=== PATIENT | male | born 1975 | race Two or more races ===

== ENCOUNTER 2022-11-12 14:02 | Inpatient (IN) | payer MEDICAID, OTHER ==
[~2022-11-12] VITALS: Ht 188 cm; Wt 108.0 kg
[~2022-11-12 14:02] MED LIST: ALLO100T PO; AMLO1TAB23 PO; BUSP10TA90 PO; CHL25C PO; FOLI-119 PO; MET50T PO; PANT40T PO; THIA100T13 PO
[2022-11-12] MEDS ORDERED: LORazepam 2MG/ML-1ML VIAL IV ONE ×2 (15:00→17:30)
[2022-11-12] MEDS ORDERED: SODIUM CHLORIDE 0.9% 1,000 ML IV ONE (15:00)
[2022-11-12 16:03] LABS: Basophils # (auto) 0 10 ^3/uL (0-0.2); Basophils % (auto) 1.1 % (0.0-2.0); Eosinophils # (auto) 0 10 ^3/uL (0-0.8); Hematocrit 36.8 % (41.0-53.0); Hemoglobin 12.4 g/dL (13.5-17.5); Lymphocytes # (auto) 0.7 10 ^3/uL (0.4-5.4); Lymphocytes % (auto) 18.8 % (10.0-50.0); Mean Corpuscular Hemoglobin 30.1 pg (28.0-32.0); Mean Corpuscular Hgb Conc. 33.8 g/dL (32.0-36.0); Monocytes # (auto) 0.3 10 ^3/uL (0-1.3); Monocytes % (auto) 7.7 % (0.0-12.0); Neutrophils # (auto) 2.5 10 ^3/uL (1.6-8.6); Neutrophils % (auto) 72.4 % (37.0-80.0); Nucleated Red Blood Cells % 0.8 %; Red Blood Cells 4.13 10^6/uL (4.5-5.90); Red Cell Distribution Width 16.4 % (11.8-14.3); White Blood Cell 3.5 10^3/uL (4.4-10.8)
[2022-11-12 16:07] VITALS: PULSE 128; RESP 21; O2SAT 95
[2022-11-12 16:18] LABS: Alanine Aminotransferase 43 U/L (7-40); Albumin 4.3 g/dL (3.2-4.8); Alkaline Phosphatase 89 U/L (46-116); Anion Gap 22 (5-15); Aspartate Aminotransferase 103 U/L (13-40); BUN/Creatinine Ratio 7.4 (10.0-20.0); Blood Alcohol 6.2 mg/dL (<10); Blood Urea Nitrogen 6 mg/dL (9-23); Calcium 8.7 mg/dL (8.7-10.4); Carbon Dioxide 20 mmol/L (20-30); Chloride 97 mmol/L (98-107); Glucose 63 mg/dL (74-106); Lactic Acid w/Reflex 3.3 mmol/L (0.4-2.0); Potassium 3.2 mmol/L (3.5-5.1); Sodium 139 mmol/L (136-145)
[2022-11-12 16:19] LABS: Bilirubin, Total 1.8 mg/dL (0.2-1.0); Total Protein 8.1 g/dL (5.7-8.2)
[2022-11-12 16:34] LABS: Platelet Estimate Decreased
[2022-11-12 16:35] LABS: Anisocytosis Slight
[2022-11-12] MEDS ORDERED: DEXTROSE (50%) 50ML SYRG IV ONE (17:30)
[2022-11-12 19:01] LABS: Urine Bacteria NONE SEEN /hpf (None Seen); Urine Blood 1+ /uL (Negative); Urine Clarity Clear (Clear); Urine Color Yellow (Yellow); Urine Mucus FEW (None Seen); Urine Protein, UAD 4+ (Negative); Urine Specific Gravity 1.032 (1.001-1.035); Urine WBC 3 /hpf (0 - 3)
[2022-11-12 19:18] LABS: Amphetamine Screen, Urine Neg (NEGATIVE); Barbiturate Scree,Urine Neg (NEGATIVE); Benzodiazephine Screen, Urine Pos (NEGATIVE); Cocaine Screen, Urine Neg (NEGATIVE); Opiate Scree,Urine Neg (NEGATIVE)
[2022-11-12 19:19] LABS: Cannabinoid Screen, Urine Neg (NEGATIVE); Phencyclidine Screen, Urine Neg (NEGATIVE)
[2022-11-12 19:26] VITALS: PULSE 103; RESP 17; O2SAT 96
[2022-11-12] MEDS ORDERED: MORPHINE SULFATE INJ 2 MG/ml SYRG IV PRN (20:15)
[2022-11-12] MEDS ORDERED: ONDANSETRON HCL 4 MG/2 ML VIAL IV PRN (20:15)
[2022-11-12] MEDS ORDERED: NITROGLYCERIN 0.4 MG SL TAB SL PRN (20:15)
[2022-11-12] MEDS ORDERED: POTASSIUM CHL 20 Meq TABLET PO ONE (20:15)
[2022-11-12] MEDS: chlordiazePOXIDE HCL 25 MG CAP PO PRN (21:07)
[2022-11-12] MEDS: METOPROLOL TARTRATE 50 MG TAB PO SCH (22:39)
[2022-11-12] MEDS ORDERED: IBUPROFEN 600 MG TAB PO ONE (22:45)
[2022-11-12] MEDS: TEMAZEPAM 15 MG CAP PO PRN (22:54)
[2022-11-13] VITALS (7 sets, daily range): BP systolic 150–165; BP diastolic 98–103; PULSE 70–118; RESP 18–20; TEMP 97.9–98.6; O2SAT 96–98
[2022-11-13] MEDS: chlordiazePOXIDE HCL 25 MG CAP PO PRN (02:44)
[2022-11-13 05:01] LABS: Basophils # (auto) 0 10 ^3/uL (0-0.2); Eosinophils # (auto) 0 10 ^3/uL (0-0.8); Eosinophils % (auto) 0.4 % (0.0-7.0); Hematocrit 36.4 % (41.0-53.0); Hemoglobin 12.3 g/dL (13.5-17.5); Lymphocytes # (auto) 1.1 10 ^3/uL (0.4-5.4); Lymphocytes % (auto) 39.5 % (10.0-50.0); Mean Corpuscular Hemoglobin 29.9 pg (28.0-32.0); Mean Corpuscular Hgb Conc. 33.7 g/dL (32.0-36.0); Mean Corpuscular Volume 88.9 fL (80.0-100.0); Monocytes # (auto) 0.3 10 ^3/uL (0-1.3); Monocytes % (auto) 11.3 % (0.0-12.0); Neutrophils # (auto) 1.3 10 ^3/uL (1.6-8.6); Neutrophils % (auto) 47.8 % (37.0-80.0); Nucleated Red Blood Cells % 0.9 %; Red Cell Distribution Width 16.2 % (11.8-14.3); White Blood Cell 2.8 10^3/uL (4.4-10.8)
[2022-11-13 05:13] LABS: Chloride 98 mmol/L (98-107); Sodium 136 mmol/L (136-145)
[2022-11-13 05:14] LABS: Anion Gap 11 (5-15); Carbon Dioxide 27 mmol/L (20-30)
[2022-11-13 05:15] LABS: Calcium 8.7 mg/dL (8.7-10.4)
[2022-11-13] MEDS ORDERED: ACETAMINOPHEN 325 MG TAB PO ONE (05:15)
[2022-11-13 05:19] LABS: Glucose 94 mg/dL (74-106)
[2022-11-13 05:20] LABS: BUN/Creatinine Ratio 5.2 (10.0-20.0); Blood Urea Nitrogen < 5 mg/dL (9-23)
[2022-11-13] MEDS ORDERED: POTASSIUM CHL 20 Meq TABLET PO ONE ×2 (08:45→10:30)
[2022-11-13] MEDS: MAGNESIUM SULFATE 1GM/100ML 100 ML IV SCH ×2 (09:40→12:41)
[2022-11-13] MEDS: amLODIPine BESYLATE 5 MG TAB PO SCH (09:41)
[2022-11-13] MEDS: ALLOPURINOL 100 MG TAB PO SCH (09:41)
[2022-11-13] MEDS: METOPROLOL TARTRATE 50 MG TAB PO SCH ×2 (09:42→21:40)
[2022-11-13] MEDS: SERTRALINE HCL 50 MG TAB PO SCH (09:42)
[2022-11-13] MEDS ORDERED: FOLIC ACID 1 MG TAB PO SCH (10:00)
[2022-11-13 10:14] LABS: Hepatitis B Surface Antigen Negative (Negative)
[2022-11-13 10:35] LABS: Hepatitis C Antibody Negative (Negative)
[2022-11-13] MEDS: FOLIC ACID 1 MG, MULTIPLE VITAMIN 10 ML, MAGNESIUM SULF SDV 50% 8 MEQ, THIAMINE INJ 100... INJ SCH ×5 (13:35)
[2022-11-14] VITALS (12 sets, daily range): BP systolic 140–178; BP diastolic 91–113; PULSE 88–125; RESP 17–20; TEMP 97.6–98.7; O2SAT 95–99
[2022-11-14] MEDS: hydrALAZINE HCL 20 MG/ML VL IV PRN ×2 (04:37→16:23)
[2022-11-14] MEDS: chlordiazePOXIDE HCL 25 MG CAP PO PRN ×2 (04:38→16:46)
[2022-11-14 06:45] LABS: Basophils # (auto) 0 10 ^3/uL (0-0.2); Basophils % (auto) 0.6 % (0.0-2.0); Eosinophils # (auto) 0.1 10 ^3/uL (0-0.8); Hemoglobin 12.8 g/dL (13.5-17.5); Neutrophils # (auto) 1.6 10 ^3/uL (1.6-8.6); White Blood Cell 2.9 10^3/uL (4.4-10.8)
[2022-11-14 06:48] LABS: Eosinophils % (auto) 2.4 % (0.0-7.0); Hematocrit 37.4 % (41.0-53.0); Lymphocytes % (auto) 33.4 % (10.0-50.0); Mean Corpuscular Hemoglobin 29.8 pg (28.0-32.0); Mean Corpuscular Hgb Conc. 34.2 g/dL (32.0-36.0); Mean Corpuscular Volume 87.3 fL (80.0-100.0); Monocytes # (auto) 0.3 10 ^3/uL (0-1.3); Monocytes % (auto) 9.4 % (0.0-12.0); Neutrophils % (auto) 54.2 % (37.0-80.0); Nucleated Red Blood Cells % 0.4 %; Red Blood Cells 4.29 10^6/uL (4.5-5.90); Red Cell Distribution Width 16.1 % (11.8-14.3)
[2022-11-14 06:57] LABS: Anion Gap 10 (5-15); Carbon Dioxide 26 mmol/L (20-30); Chloride 99 mmol/L (98-107); Sodium 135 mmol/L (136-145)
[2022-11-14 06:58] LABS: Calcium 9.2 mg/dL (8.7-10.4)
[2022-11-14 07:03] LABS: Glucose 99 mg/dL (74-106)
[2022-11-14 07:19] LABS: BUN/Creatinine Ratio 7.7 (10.0-20.0); Blood Urea Nitrogen < 5 mg/dL (9-23); Potassium 2.9 mmol/L (3.5-5.1)
[2022-11-14] MEDS ORDERED: POTASSIUM EFFERVESENT TAB 25 MEQ GT ONE (08:15)
[2022-11-14] MEDS ORDERED: LISI-275 PO (09:41)
[2022-11-14] MEDS: ALLOPURINOL 100 MG TAB PO SCH (10:04)
[2022-11-14] MEDS: SERTRALINE HCL 50 MG TAB PO SCH (10:04)
[2022-11-14] MEDS: POTASSIUM CHL 20 Meq TABLET PO ONE ×3 (10:04→11:51)
[2022-11-14] MEDS: METOPROLOL TARTRATE 50 MG TAB PO SCH ×2 (10:05→21:00)
[2022-11-14] MEDS: amLODIPine BESYLATE 5 MG TAB PO SCH (10:06)
[2022-11-14] MEDS: FOLIC ACID 1 MG, MULTIPLE VITAMIN 10 ML, MAGNESIUM SULF SDV 50% 8 MEQ, THIAMINE INJ 100... INJ SCH ×5 (11:58)
[2022-11-14] MEDS: TEMAZEPAM 15 MG CAP PO PRN (21:00)
[2022-11-15] VITALS (7 sets, daily range): BP systolic 120–153; BP diastolic 87–99; PULSE 94–127; RESP 18–20; TEMP 36.6; O2SAT 96–98
[2022-11-15] MEDS: chlordiazePOXIDE HCL 25 MG CAP PO PRN ×2 (00:17→15:49)
[2022-11-15] MEDS ORDERED: LORazepam 2MG/ML-1ML VIAL IV PRN (03:30)
[2022-11-15] MEDS: LORazepam 2MG/ML-1ML VIAL IV PRN ×2 (03:51→10:48)
[2022-11-15] MEDS ORDERED: dilTIAZem 25 MG/5 ML VIAL IV ONE (05:15)
[2022-11-15 08:15] LABS: Basophils # (auto) 0 10 ^3/uL (0-0.2); Eosinophils # (auto) 0 10 ^3/uL (0-0.8); Eosinophils % (auto) 1.3 % (0.0-7.0); Hematocrit 39.9 % (41.0-53.0); Hemoglobin 13.3 g/dL (13.5-17.5); Lymphocytes # (auto) 1.2 10 ^3/uL (0.4-5.4); Lymphocytes % (auto) 35.7 % (10.0-50.0); Mean Corpuscular Hemoglobin 29.7 pg (28.0-32.0); Mean Corpuscular Hgb Conc. 33.3 g/dL (32.0-36.0); Monocytes # (auto) 0.3 10 ^3/uL (0-1.3); Monocytes % (auto) 8.4 % (0.0-12.0); Neutrophils # (auto) 1.8 10 ^3/uL (1.6-8.6); Neutrophils % (auto) 53.6 % (37.0-80.0); Nucleated Red Blood Cells % 0.1 %; Red Blood Cells 4.48 10^6/uL (4.5-5.90); Red Cell Distribution Width 16.6 % (11.8-14.3); White Blood Cell 3.3 10^3/uL (4.4-10.8)
[2022-11-15 08:28] LABS: Anion Gap 12 (5-15); Carbon Dioxide 24 mmol/L (20-30); Chloride 98 mmol/L (98-107); Potassium 3.2 mmol/L (3.5-5.1); Sodium 134 mmol/L (136-145)
[2022-11-15 08:29] LABS: Calcium 9.8 mg/dL (8.5-10.1)
[2022-11-15 08:34] LABS: BUN/Creatinine Ratio 9.1 (10.0-20.0); Blood Urea Nitrogen 6 mg/dL (9-23); Glucose 105 mg/dL (74-106)
[2022-11-15] MEDS: ALLOPURINOL 100 MG TAB PO SCH (10:45)
[2022-11-15] MEDS: amLODIPine BESYLATE 5 MG TAB PO SCH (10:45)
[2022-11-15] MEDS: SERTRALINE HCL 50 MG TAB PO SCH (10:46)
[2022-11-15] MEDS: METOPROLOL TARTRATE 50 MG TAB PO SCH ×2 (10:48→22:53)
[2022-11-15] MEDS: FOLIC ACID 1 MG, MULTIPLE VITAMIN 10 ML, MAGNESIUM SULF SDV 50% 8 MEQ, THIAMINE INJ 100... INJ SCH ×5 (12:48)
[2022-11-15] MEDS: MAGNESIUM SULFATE 1GM/100ML 100 ML IV SCH ×2 (16:35→22:44)
[2022-11-15] MEDS: POTASSIUM CHL 20MEQ/100ML 100 ML IV SCH ×2 (16:36→19:52)
[2022-11-15 16:45] LABS: Triglycerides 106 mg/dL (< 150)
[2022-11-15] MEDS ORDERED: AMOXICILLIN/CLAVUL 875 MG TAB PO ONE (16:45)
[2022-11-15] MEDS ORDERED: MAGNESIUM OXIDE 400 MG TAB PO ONE (16:45)
[2022-11-15 16:46] LABS: LDL Cholesterol 126 mg/dL (< 100)
[2022-11-15 16:47] LABS: Cholesterol 229 mg/dL (< 200); HDL Cholesterol 67 mg/dL (40-59)
[2022-11-15] MEDS: chlordiazePOXIDE HCL 25 MG CAP PO SCH ×2 (18:00→22:53)
[2022-11-15] MEDS ORDERED: MAGNESIUM OXIDE 400 MG TAB PO SCH (22:00)
[2022-11-16] MEDS: chlordiazePOXIDE HCL 25 MG CAP PO SCH ×2 (06:00→12:00)
[2022-11-16] MEDS: MAGNESIUM SULFATE 1GM/100ML 100 ML IV SCH (06:57)
[2022-11-16] MEDS ORDERED: AMOXICILLIN/CLAVUL 875 MG TAB PO SCH (07:00)
[2022-11-16 08:00] VITALS: BP 122/84; PULSE 93; RESP 20; TEMP 98
[2022-11-16] MEDS ORDERED: POTASSIUM CHL 20 Meq TABLET PO ONE (08:15)
[2022-11-16] MEDS: ALLOPURINOL 100 MG TAB PO SCH (10:14)
[2022-11-16] MEDS: METOPROLOL TARTRATE 50 MG TAB PO SCH (10:15)
[2022-11-16] MEDS: SERTRALINE HCL 50 MG TAB PO SCH (10:15)
[2022-11-16] MEDS: amLODIPine BESYLATE 5 MG TAB PO SCH (10:16)
[2022-11-16 11:50] VITALS: BP 122/84; PULSE 93; RESP 18; O2SAT 97
[2022-11-16] MEDS: FOLIC ACID 1 MG, MULTIPLE VITAMIN 10 ML, MAGNESIUM SULF SDV 50% 8 MEQ, THIAMINE INJ 100... INJ SCH ×5 (12:00)
[2022-11-16 14:38] VITALS: BP 122/74; PULSE 93; RESP 18; TEMP 98; O2SAT 97
== END 2022-11-16 16:28 | disposition home or self-care (01) | DRG 204 ==
LOC: EDBD 14:02 → ER 14:02 → TELE 20:09 → TELE-WESTW 11-13 08:52
PROVIDERS: ADMIT Internal Medicine Pulmonary Disease; ATTEND Student in an Organized Health Care Education/Training Program
DX: I95.1 Orthostatic hypotension (principal); F10.231 Alcohol dependence with withdrawal delirium; D69.6 Thrombocytopenia, unspecified; E87.20 Acidosis, unspecified; S09.90XA Unspecified injury of head, initial encounter; S81.011A Laceration without foreign body, right knee, initial encounter; E86.0 Dehydration; F10.239 Alcohol dependence with withdrawal, unspecified; I10 Essential (primary) hypertension; D72.819 Decreased white blood cell count, unspecified; E87.6 Hypokalemia; E83.42 Hypomagnesemia; E66.9 Obesity, unspecified; G62.9 Polyneuropathy, unspecified; R00.0 Tachycardia, unspecified; R29.6 Repeated falls; I16.0 Hypertensive urgency; M1A.9XX0 Chronic gout, unspecified, without tophus (tophi); F10.229 Alcohol dependence with intoxication, unspecified; Y90.9 Presence of alcohol in blood, level not specified; W18.39XA Other fall on same level, initial encounter; Y93.89 Activity, other specified; Z82.49 Family history of ischemic heart disease and other diseases of the circulatory system; Z83.3 Family history of diabetes mellitus; Y92.89 Other specified places as the place of occurrence of the external cause; Y99.8 Other external cause status; Z68.30 Body mass index [BMI] 30.0-30.9, adult; D69.59 Other secondary thrombocytopenia; G89.11 Acute pain due to trauma; W19.XXXA Unspecified fall, initial encounter
CPT/HCPCS: 36415; 70450; 71045; 72125; 80048; 80053; 80061; 80307; 80320; 81001; 82533; 82962; 83036; 83605; 83735; 83880; 84443; 84484; 85025; 86803; 87340; 93306; 96361; 96374; 96375; 96376; 97163; G0378; J3480

== ENCOUNTER 2022-12-16 19:42 | Inpatient (IN) | payer MEDICAID ==
[~2022-12-16] VITALS: Ht 182.9 cm; Wt 90.9 kg
[~2022-12-16 19:42] MED LIST changes: -BUSP10TA90 PO; +GABA-1250 PO; +LISI-275 PO
[2022-12-16] MEDS ORDERED: ONDANSETRON HCL 4 MG/2 ML VIAL IV ONE (21:00)
[2022-12-16] MEDS ORDERED: THIAMINE 100mg/ml INJ (200mg/2ml VIAL) IV ONE (21:00)
[2022-12-16] MEDS ORDERED: MVI in SODIUM CHLORIDE 0.9% 1,010 ML IV ONE (21:00)
[2022-12-16] MEDS ORDERED: LORazepam 2MG/ML-1ML VIAL IV ONE (21:00)
[2022-12-16] MEDS ORDERED: PANTOPRAZOLE 40 MG/10 ML VIAL INJ IV ONE (21:00)
[2022-12-16] MEDS: MAGNESIUM SULFATE 1GM/100ML 100 ML IV SCH ×2 (21:25→22:38)
[2022-12-16 21:38] LABS: Basophils # (auto) 0.1 10 ^3/uL (0-0.2); Eosinophils # (auto) 0 10 ^3/uL (0-0.8); Hematocrit 40.9 % (41.0-53.0); Hemoglobin 13.4 g/dL (13.5-17.5); Lymphocytes # (auto) 1.2 10 ^3/uL (0.4-5.4); Lymphocytes % (auto) 33.9 % (10.0-50.0); Mean Corpuscular Hemoglobin 29.8 pg (28.0-32.0); Mean Corpuscular Hgb Conc. 32.8 g/dL (32.0-36.0); Mean Corpuscular Volume 90.9 fL (80.0-100.0); Monocytes # (auto) 0.3 10 ^3/uL (0-1.3); Monocytes % (auto) 8.4 % (0.0-12.0); Neutrophils # (auto) 1.9 10 ^3/uL (1.6-8.6); Neutrophils % (auto) 54.7 % (37.0-80.0); Nucleated Red Blood Cells % 0.2 %; Red Cell Distribution Width 17.1 % (11.8-14.3); White Blood Cell 3.5 10^3/uL (4.4-10.8)
[2022-12-16 21:47] LABS: Alanine Aminotransferase 76 U/L (7-40); Albumin 4.9 g/dL (3.2-4.8); Alkaline Phosphatase 102 U/L (46-116); Anion Gap 21 (5-15); Aspartate Aminotransferase 156 U/L (13-40); BUN/Creatinine Ratio 6.8 (10.0-20.0); Blood Alcohol 46.6 mg/dL (<10); Blood Urea Nitrogen 5 mg/dL (9-23); Calcium 9.2 mg/dL (8.5-10.1); Carbon Dioxide 18 mmol/L (20-30); Chloride 103 mmol/L (98-107); Glucose 65 mg/dL (74-106); Sodium 142 mmol/L (136-145)
[2022-12-16 21:48] LABS: Bilirubin, Total 1.7 mg/dL (0.2-1.0); Total Protein 8.9 g/dL (5.7-8.2)
[2022-12-16 22:08] VITALS: PULSE 116; RESP 20; O2SAT 96
[2022-12-17] MEDS ORDERED: MORPHINE SULFATE INJ 2 MG/ml SYRG IV PRN (05:15)
[2022-12-17] MEDS ORDERED: NITROGLYCERIN 0.4 MG SL TAB SL PRN (05:15)
[2022-12-17] MEDS ORDERED: chlordiazePOXIDE HCL 25 MG CAP PO PRN (05:15)
[2022-12-17] MEDS ORDERED: TEMAZEPAM 15 MG CAP PO PRN (05:15)
[2022-12-17 08:00] VITALS: PULSE 82; RESP 12; O2SAT 98
[2022-12-17] MEDS: METOPROLOL TARTRATE 50 MG TAB PO SCH ×2 (08:54→23:31)
[2022-12-17] MEDS: amLODIPine BESYLATE 5 MG TAB PO SCH (08:55)
[2022-12-17] MEDS: ALLOPURINOL 100 MG TAB PO SCH (08:55)
[2022-12-17] MEDS: ACETAMINOPHEN 325 MG TAB PO PRN ×2 (09:27→23:31)
[2022-12-17 10:58] LABS: Urine Bacteria NONE SEEN /hpf (None Seen); Urine Blood 1+ /uL (Negative); Urine Clarity Clear (Clear); Urine Color Yellow (Yellow); Urine Hyaline Cast MOD /lpf (0 - 2); Urine Mucus FEW (None Seen); Urine Protein, UAD 2+ (Negative); Urine Specific Gravity 1.032 (1.001-1.035); Urine Urobilinogen Normal (Negative); Urine WBC 3 /hpf (0 - 3); Urine pH 5.5 (5.0-8.0)
[2022-12-17] MEDS: FOLIC ACID 1 MG, MULTIPLE VITAMIN 10 ML, MAGNESIUM SULF SDV 50% 8 MEQ, THIAMINE INJ 100... INJ SCH ×5 (13:06)
[2022-12-17] MEDS: cloNIDine HCL 0.1 MG TAB PO PRN (17:34)
[2022-12-17 20:00] VITALS: PULSE 84; RESP 19; O2SAT 98
[2022-12-17 21:00] VITALS: TEMP 98.4
[2022-12-17] MEDS ORDERED: SERTRALINE HCL 50 MG TAB PO SCH (22:00)
[2022-12-18 04:55] LABS: Alanine Aminotransferase 50 U/L (7-40); Albumin 4.2 g/dL (3.2-4.8); Alkaline Phosphatase 78 U/L (46-116); Anion Gap 9 (5-15); Aspartate Aminotransferase 87 U/L (13-40); Calcium 8.6 mg/dL (8.5-10.1); Carbon Dioxide 20 mmol/L (20-30); Chloride 104 mmol/L (98-107); Cholesterol 203 mg/dL (< 200); Glucose 96 mg/dL (74-106); HDL Cholesterol 76 mg/dL (40-59); LDL Cholesterol 109 mg/dL (< 100); Potassium 4.3 mmol/L (3.5-5.1); Triglycerides 92 mg/dL (< 150)
[2022-12-18 04:56] LABS: Bilirubin, Total 2.4 mg/dL (0.2-1.0); Total Protein 7.7 g/dL (5.7-8.2)
[2022-12-18 05:19] LABS: BUN/Creatinine Ratio 7.6 (10.0-20.0); Blood Urea Nitrogen < 5 mg/dL (9-23); Sodium 133 mmol/L (136-145)
[2022-12-18 05:33] LABS: Lipase 50 U/L (12-53)
[2022-12-18 05:34] LABS: Magnesium 1.7 mg/dL (1.6-2.6)
[2022-12-18] MEDS: ACETAMINOPHEN 325 MG TAB PO PRN ×2 (06:59→12:31)
[2022-12-18] MEDS: cloNIDine HCL 0.1 MG TAB PO PRN (07:01)
[2022-12-18 07:22] LABS: Basophils # (auto) 0 10 ^3/uL (0-0.2); Basophils % (auto) 1.1 % (0.0-2.0); Eosinophils # (auto) 0 10 ^3/uL (0-0.8); Eosinophils % (auto) 0.8 % (0.0-7.0); Hematocrit 38.1 % (41.0-53.0); Hemoglobin 12.6 g/dL (13.5-17.5); Lymphocytes # (auto) 1.3 10 ^3/uL (0.4-5.4); Lymphocytes % (auto) 43.4 % (10.0-50.0); Mean Corpuscular Hemoglobin 30.3 pg (28.0-32.0); Mean Corpuscular Volume 91.9 fL (80.0-100.0); Monocytes # (auto) 0.3 10 ^3/uL (0-1.3); Monocytes % (auto) 10.8 % (0.0-12.0); Neutrophils # (auto) 1.3 10 ^3/uL (1.6-8.6); Neutrophils % (auto) 43.9 % (37.0-80.0); Nucleated Red Blood Cells % 0.8 %; Red Blood Cells 4.14 10^6/uL (4.5-5.90); Red Cell Distribution Width 16.3 % (11.8-14.3); White Blood Cell 2.9 10^3/uL (4.4-10.8)
[2022-12-18 07:49] LABS: INR 1.16 (0.9-1.15); Partial Thromboplastin Time 27.2 SEC (24.5-34.5); Prothrombin Time 12.1 sec (9.3-11.8)
[2022-12-18] MEDS: FOLIC ACID 1 MG, MULTIPLE VITAMIN 10 ML, MAGNESIUM SULF SDV 50% 8 MEQ, THIAMINE INJ 100... INJ SCH ×5 (12:00)
[2022-12-18] MEDS: ALLOPURINOL 100 MG TAB PO SCH (12:31)
[2022-12-18] MEDS: METOPROLOL TARTRATE 50 MG TAB PO SCH (12:36)
[2022-12-18] MEDS: amLODIPine BESYLATE 5 MG TAB PO SCH (12:36)
[2022-12-18 12:37] VITALS: BP 151/86; PULSE 81; RESP 17; O2SAT 98
== END 2022-12-18 16:31 | disposition home or self-care (01) | DRG 775 ==
LOC: ER 19:42 → EDBD 19:42 → TELE 12-17 05:01 → UNDODEPER 12-18 16:45
PROVIDERS: ADMIT Nurse Practitioner; ATTEND Internal Medicine Geriatric Medicine
DX: F10.139 Alcohol abuse with withdrawal, unspecified (principal); K74.60 Unspecified cirrhosis of liver; I10 Essential (primary) hypertension; Y90.9 Presence of alcohol in blood, level not specified; M10.9 Gout, unspecified; R74.01 Elevation of levels of liver transaminase levels; R00.0 Tachycardia, unspecified
CPT/HCPCS: 36415; 80053; 80061; 80320; 81001; 82140; 83690; 83735; 85025; 85610; 85730; C9113; G0378; J2405

== ENCOUNTER 2022-12-30 09:10 | Inpatient (IN) | payer MEDICAID ==
[~2022-12-30] VITALS: Ht 180.3 cm; Wt 109.5 kg
[2022-12-30] MEDS ORDERED: THIAMINE HCL 100 MG TAB PO ONE (09:30)
[2022-12-30] MEDS ORDERED: ONDANSETRON HCL 4 MG/2 ML VIAL IV ONE (09:30)
[2022-12-30] MEDS ORDERED: LORazepam 2MG/ML-1ML VIAL IV ONE (09:30)
[2022-12-30] MEDS ORDERED: SODIUM CHLORIDE 0.9% 1,000 ML IV ONE ×4 (09:30→11:30)
[2022-12-30] MEDS ORDERED: chlordiazePOXIDE HCL 25 MG CAP PO ONE ×2 (09:30→11:30)
[2022-12-30] MEDS ORDERED: FOLIC ACID 1 MG, MULTIPLE VITAMIN 10 ML, MAGNESIUM SULF SDV 50% 8 MEQ, THIAMINE INJ 100... INJ ONE ×5 (10:15)
[2022-12-30] MEDS ORDERED: LORazepam 2MG/ML-1ML VIAL IM ONE (10:15)
[2022-12-30 11:26] LABS: Basophils # (auto) 0 10 ^3/uL (0-0.2); Eosinophils # (auto) 0 10 ^3/uL (0-0.8); Hemoglobin 13.7 g/dL (13.5-17.5); Lymphocytes # (auto) 0.7 10 ^3/uL (0.4-5.4)
[2022-12-30 11:29] LABS: Basophils % (auto) 1.1 % (0.0-2.0); Hematocrit 42.1 % (41.0-53.0); Lymphocytes % (auto) 21.5 % (10.0-50.0); Mean Corpuscular Hemoglobin 30.2 pg (28.0-32.0); Mean Corpuscular Hgb Conc. 32.5 g/dL (32.0-36.0); Mean Corpuscular Volume 92.9 fL (80.0-100.0); Monocytes # (auto) 0.1 10 ^3/uL (0-1.3); Monocytes % (auto) 4.5 % (0.0-12.0); Neutrophils # (auto) 2.4 10 ^3/uL (1.6-8.6); Neutrophils % (auto) 72.9 % (37.0-80.0); Nucleated Red Blood Cells % 0.3 %; Red Blood Cells 4.53 10^6/uL (4.5-5.90); Red Cell Distribution Width 16.7 % (11.8-14.3); White Blood Cell 3.3 10^3/uL (4.4-10.8)
[2022-12-30 11:30] VITALS: PULSE 130; RESP 16; O2SAT 100
[2022-12-30 11:42] LABS: Alanine Aminotransferase 40 U/L (7-40); Albumin 4.5 g/dL (3.2-4.8); Alkaline Phosphatase 105 U/L (46-116); Anion Gap 24 (5-15); Aspartate Aminotransferase 171 U/L (13-40); BUN/Creatinine Ratio 7.9 (10.0-20.0); Blood Alcohol 47.7 mg/dL (<10); Blood Urea Nitrogen 6 mg/dL (9-23); Calcium 8.4 mg/dL (8.5-10.1); Carbon Dioxide 18 mmol/L (20-30); Chloride 102 mmol/L (98-107); Glucose 88 mg/dL (74-106); Potassium 3.4 mmol/L (3.5-5.1); Sodium 144 mmol/L (136-145)
[2022-12-30 11:43] LABS: Bilirubin, Total 2.1 mg/dL (0.2-1.0); Total Protein 8.3 g/dL (5.7-8.2)
[2022-12-30] MEDS ORDERED: NITROGLYCERIN 0.4 MG SL TAB SL PRN (11:45)
[2022-12-30] MEDS ORDERED: MORPHINE SULFATE INJ 2 MG/ml SYRG IV PRN (11:45)
[2022-12-30 12:42] LABS: LDL Cholesterol 115 mg/dL (< 100); Triglycerides 95 mg/dL (< 150)
[2022-12-30 12:44] LABS: Cholesterol 226 mg/dL (< 200); HDL Cholesterol 79 mg/dL (40-59)
[2022-12-30] MEDS ORDERED: POTASSIUM EFFERVESENT TAB 25 MEQ PO ONE (12:45)
[2022-12-30] MEDS: chlordiazePOXIDE HCL 25 MG CAP PO SCH (14:00)
[2022-12-30] MEDS: GABAPENTIN 300 MG CAP PO SCH (14:19)
[2022-12-30 14:20] LABS: Erythrocyte Sedimentation Rate 11 mm/hr (0-20)
[2022-12-30] MEDS: FOLIC ACID 1 MG, MULTIPLE VITAMIN 10 ML, MAGNESIUM SULF SDV 50% 8 MEQ, THIAMINE INJ 100... INJ SCH ×5 (14:20)
[2022-12-30] MEDS: LORazepam 2MG/ML-1ML VIAL IV PRN (17:45)
[2022-12-30 21:41] LABS: Urine Bacteria FEW /hpf (None Seen); Urine Blood 2+ /uL (Negative); Urine Clarity HAZY (Clear); Urine Color Brown (Yellow); Urine Hyaline Cast MOD /lpf (0 - 2); Urine Mucus FEW (None Seen); Urine Protein, UAD 3+ (Negative); Urine Specific Gravity 1.034 (1.001-1.035); Urine WBC 4 /hpf (0 - 3)
[2022-12-30 21:50] LABS: Amphetamine Screen, Urine Neg (NEGATIVE)
[2022-12-30 21:51] LABS: Barbiturate Scree,Urine Neg (NEGATIVE); Benzodiazephine Screen, Urine Pos (NEGATIVE)
[2022-12-30 21:52] LABS: Cannabinoid Screen, Urine Neg (NEGATIVE); Cocaine Screen, Urine Neg (NEGATIVE); Opiate Scree,Urine Neg (NEGATIVE); Phencyclidine Screen, Urine Neg (NEGATIVE)
[2022-12-31] MEDS: chlordiazePOXIDE HCL 25 MG CAP PO SCH ×4 (00:24→22:08)
[2022-12-31] MEDS: GABAPENTIN 300 MG CAP PO SCH ×4 (00:24→22:08)
[2022-12-31] MEDS: METOPROLOL TARTRATE 50 MG TAB PO SCH ×3 (00:24→22:08)
[2022-12-31 07:35] VITALS: PULSE 111; RESP 15; O2SAT 100
[2022-12-31 08:45] VITALS: PULSE 91; RESP 20
[2022-12-31] MEDS ORDERED: LISINOPRIL 5 MG TAB PO SCH (10:00)
[2022-12-31] MEDS ORDERED: PATIENTS OWN MEDICATION (Folic Acid 1 MG) PO SCH (10:00)
[2022-12-31] MEDS ORDERED: ENOXAPARIN SOD 40 MG/0.4 ML SYRINGE SC SCH (10:00)
[2022-12-31] MEDS ORDERED: PANTOPRAZOLE 40 MG TAB PO SCH (10:00)
[2022-12-31] MEDS ORDERED: THIAMINE HCL 100 MG TAB PO SCH (10:00)
[2022-12-31] MEDS ORDERED: ALLOPURINOL 100 MG TAB PO SCH (10:00)
[2022-12-31] MEDS ORDERED: amLODIPine BESYLATE 5 MG TAB PO SCH (10:00)
[2022-12-31] MEDS ORDERED: SODIUM CHLORIDE 0.9% 1,000 ML IV ONE (13:15)
[2022-12-31] MEDS: FOLIC ACID 1 MG, MULTIPLE VITAMIN 10 ML, MAGNESIUM SULF SDV 50% 8 MEQ, THIAMINE INJ 100... INJ SCH ×5 (15:43)
[2022-12-31] MEDS ORDERED: POTASSIUM CHL 20 Meq TABLET PO ONE (15:45)
[2022-12-31 20:00] VITALS: BP 134/86; PULSE 93; PULSE 95; RESP 22; TEMP 98.4; O2SAT 99
[2022-12-31] MEDS ORDERED: BUSP10TA90 PO (20:17)
[2023-01-01] MEDS ORDERED: BISMUTH SUBSALICYLATE 262MG/15ml ORAL Susp PO ONE (04:00)
[2023-01-01 05:00] VITALS: BP 145/94; PULSE 91; RESP 20; TEMP 98.2
[2023-01-01] MEDS: chlordiazePOXIDE HCL 25 MG CAP PO SCH (05:26)
[2023-01-01] MEDS: GABAPENTIN 300 MG CAP PO SCH (05:26)
[2023-01-01] MEDS: LORazepam 2MG/ML-1ML VIAL IV PRN (06:20)
[2023-01-01 06:24] LABS: Basophils # (auto) 0 10 ^3/uL (0-0.2); Eosinophils # (auto) 0 10 ^3/uL (0-0.8); Eosinophils % (auto) 0.5 % (0.0-7.0); Hemoglobin 12.6 g/dL (13.5-17.5); Lymphocytes # (auto) 1.3 10 ^3/uL (0.4-5.4); Mean Corpuscular Volume 90.4 fL (80.0-100.0); Monocytes # (auto) 0.2 10 ^3/uL (0-1.3); Neutrophils # (auto) 1.9 10 ^3/uL (1.6-8.6); White Blood Cell 3.5 10^3/uL (4.4-10.8)
[2023-01-01 06:28] LABS: Basophils % (auto) 0.8 % (0.0-2.0); Lymphocytes % (auto) 36.9 % (10.0-50.0); Mean Corpuscular Hemoglobin 29.9 pg (28.0-32.0); Mean Corpuscular Hgb Conc. 33.1 g/dL (32.0-36.0); Monocytes % (auto) 6.6 % (0.0-12.0); Neutrophils % (auto) 55.2 % (37.0-80.0); Nucleated Red Blood Cells % 0.5 %
[2023-01-01 06:45] LABS: Alanine Aminotransferase 29 U/L (7-40); Alkaline Phosphatase 101 U/L (46-116); Anion Gap 9 (5-15); BUN/Creatinine Ratio 8.5 (10.0-20.0); Blood Urea Nitrogen 6 mg/dL (9-23); Calcium 8.9 mg/dL (8.5-10.1); Carbon Dioxide 28 mmol/L (20-30); Chloride 97 mmol/L (98-107); Glucose 93 mg/dL (74-106)
[2023-01-01 06:46] LABS: Aspartate Aminotransferase 119 U/L (13-40)
[2023-01-01 06:47] LABS: Bilirubin, Total 2.5 mg/dL (0.2-1.0); Total Protein 7.5 g/dL (5.7-8.2)
[2023-01-01 06:48] LABS: Sodium 134 mmol/L (136-145)
[2023-01-01 08:00] VITALS: PULSE 88; RESP 20; O2SAT 98
[2023-01-01 09:00] VITALS: BP 126/83; PULSE 88; RESP 19; TEMP 98; O2SAT 98
[2023-01-01] MEDS ORDERED: FOLI-119 PO (09:10)
[2023-01-01] MEDS ORDERED: THIA100T13 PO (09:10)
[2023-01-01] MEDS ORDERED: CHL25C PO (09:10)
[2023-01-01] MEDS ORDERED: MULT1TAB95 PO (09:10)
[2023-01-01 09:49] VITALS: BP 134/86; PULSE 97
== END 2023-01-01 10:37 | disposition home or self-care (01) | DRG 422 ==
LOC: EDBD 09:10 → EDUNIT# 09:10 → ER 09:10 → TELE 11:33 → TELE-EAST 12-31 18:44
PROVIDERS: ADMIT Nurse Practitioner Family; ATTEND Family Medicine
DX: E86.0 Dehydration (principal); E87.6 Hypokalemia; F10.139 Alcohol abuse with withdrawal, unspecified; I10 Essential (primary) hypertension; M10.9 Gout, unspecified; F41.9 Anxiety disorder, unspecified; F10.129 Alcohol abuse with intoxication, unspecified; Y90.9 Presence of alcohol in blood, level not specified
CPT/HCPCS: 36415; 70450; 76705; 80053; 80061; 80307; 80320; 81001; 84443; 85025; 85652; 86141; 87081; 96361; 96374; 96375; G0378; J2405

== ENCOUNTER 2023-01-30 05:28 | Inpatient (IN) | payer MEDICAID ==
[~2023-01-30] VITALS: Ht 193 cm; Wt 111.7 kg
[~2023-01-30 05:28] MED LIST changes: +BUSP10TA90 PO; +MULT1TAB95 PO
[2023-01-30 06:25] VITALS: PULSE 117; RESP 18; O2SAT 97
[2023-01-30 07:39] VITALS: PULSE 98; RESP 16; O2SAT 98
[2023-01-30 09:38] LABS: Acetaminophen < 2.0 UG/ML (10.0-20.0); Alanine Aminotransferase 131 U/L (7-40); Albumin 4.9 g/dL (3.2-4.8); Alkaline Phosphatase 117 U/L (46-116); Aspartate Aminotransferase 338 U/L (13-40); Basophils # (auto) 0 10 ^3/uL (0-0.2); Bilirubin, Total 0.8 mg/dL (0.2-1.0); Calcium 8.6 mg/dL (8.7-10.4); Carbon Dioxide 14 mmol/L (20-30); Chloride 109 mmol/L (98-107); Eosinophils # (auto) 0 10 ^3/uL (0-0.8); Glucose 60 mg/dL (74-106); Hematocrit 44.9 % (41.0-53.0); Hemoglobin 14.1 g/dL (13.5-17.5); Lymphocytes # (auto) 1.1 10 ^3/uL (0.4-5.4); Mean Corpuscular Hemoglobin 31.2 pg (28.0-32.0); Mean Corpuscular Hgb Conc. 31.5 g/dL (32.0-36.0); Monocytes # (auto) 0.5 10 ^3/uL (0-1.3); Neutrophils # (auto) 3.2 10 ^3/uL (1.6-8.6); Nucleated Red Blood Cells % 0.4 %; Potassium 3.6 mmol/L (3.5-5.1); Red Blood Cells 4.53 10^6/uL (4.5-5.90); Red Cell Distribution Width 17.1 % (11.8-14.3); Sodium 147 mmol/L (136-145); Total Protein 8.7 g/dL (5.7-8.2); White Blood Cell 4.9 10^3/uL (4.4-10.8)
[2023-01-30 09:39] LABS: Salicylate < 3.0 mg/dL (2.8-20.0)
[2023-01-30 09:40] LABS: BUN/Creatinine Ratio 7.6 (10.0-20.0); Blood Urea Nitrogen < 5 mg/dL (9-23)
[2023-01-30 09:43] LABS: Anion Gap 24 (5-15)
[2023-01-30] MEDS ORDERED: LORazepam 2MG/ML-1ML VIAL IV ONE (09:45)
[2023-01-30 10:18] LABS: Magnesium 1.4 mg/dL (1.6-2.6)
[2023-01-30 11:00] VITALS: PULSE 112; RESP 18; O2SAT 98
[2023-01-30] MEDS ORDERED: SODIUM CHLORIDE 0.9% 1,000 ML IV SCH (12:00)
[2023-01-30] MEDS ORDERED: DOCUSATE SOD 100 MG CAP PO PRN (12:00)
[2023-01-30] MEDS ORDERED: ONDANSETRON HCL 4 MG/2 ML VIAL IV PRN (12:00)
[2023-01-30] MEDS: chlordiazePOXIDE HCL 25 MG CAP PO SCH ×3 (12:00→20:15)
[2023-01-30] MEDS ORDERED: FOLIC ACID 1 MG, MAGNESIUM SULF SDV 50% 8 MEQ, MULTIPLE VITAMIN 10 ML, THIAMINE INJ 100... INJ SCH ×5 (12:00)
[2023-01-30 12:02] LABS: Platelet Estimate Adequate
[2023-01-30 13:00] LABS: Amphetamine Screen, Urine Neg (NEGATIVE)
[2023-01-30] MEDS ORDERED: DEXTROSE (50%) 50ML SYRG IV PRN (13:00)
[2023-01-30 13:01] LABS: Barbiturate Scree,Urine Neg (NEGATIVE); Benzodiazephine Screen, Urine Pos (NEGATIVE); Cannabinoid Screen, Urine Neg (NEGATIVE); Cocaine Screen, Urine Neg (NEGATIVE); Opiate Scree,Urine Neg (NEGATIVE); Phencyclidine Screen, Urine Neg (NEGATIVE)
[2023-01-30 13:09] LABS: Urine Bacteria NONE SEEN /hpf (None Seen); Urine Blood 2+ /uL (Negative); Urine Clarity Clear (Clear); Urine Color Yellow (Yellow); Urine Mucus FEW (None Seen); Urine Protein, UAD 3+ (Negative); Urine Urobilinogen Normal (Negative); Urine WBC 1 /hpf (0 - 3)
[2023-01-30] MEDS ORDERED: LORazepam 2MG/ML-1ML VIAL IM ONE (13:45)
[2023-01-30 14:55] LABS: Lactic Acid w/Reflex 8.3 mmol/L (0.4-2.0)
[2023-01-30] MEDS ORDERED: SODIUM CHLORIDE 0.9% 3,000 ML IV ONE (15:15)
[2023-01-30] MEDS ORDERED: LORazepam 2MG/ML-1ML VIAL IV PRN (17:30)
[2023-01-30] MEDS ORDERED: METOPROLOL TARTRATE 1MG/1ML-5ML VIAL IV ONE (18:45)
[2023-01-30] MEDS: ACCU-CHEK COMFORT CURVE STRIP VI SCH (19:14)
[2023-01-30] MEDS: FOLIC ACID 1 MG, MAGNESIUM SULF SDV 50% 8 MEQ, MULTIPLE VITAMIN 10 ML, THIAMINE INJ 100... INJ SCH ×5 (19:15)
[2023-01-30 19:30] VITALS: PULSE 109; RESP 24; O2SAT 100
[2023-01-30] MEDS ORDERED: IBUPROFEN 800 MG TAB PO ONE (20:15)
[2023-01-30] MEDS: D5W/ SOD CHL 0.9%/KCL 20MEQ 1,000 ML IV SCH (20:16)
[2023-01-31] MEDS: D5W/ SOD CHL 0.9%/KCL 20MEQ 1,000 ML IV SCH ×4 (00:04→22:20)
[2023-01-31] MEDS: METOPROLOL TARTRATE 50 MG TAB PO SCH ×2 (00:05→09:18)
[2023-01-31] MEDS: ACCU-CHEK COMFORT CURVE STRIP VI SCH ×4 (00:05→17:37)
[2023-01-31 01:19] VITALS: PULSE 115; RESP 18; O2SAT 98
[2023-01-31] MEDS: chlordiazePOXIDE HCL 25 MG CAP PO SCH ×3 (04:31→22:00)
[2023-01-31 07:15] LABS: Basophils # (auto) 0 10 ^3/uL (0-0.2); Basophils % (auto) 0.8 % (0.0-2.0); Eosinophils # (auto) 0 10 ^3/uL (0-0.8); Eosinophils % (auto) 0.2 % (0.0-7.0); Hematocrit 31.5 % (41.0-53.0); Hemoglobin 10.3 g/dL (13.5-17.5); Lymphocytes # (auto) 1.5 10 ^3/uL (0.4-5.4); Lymphocytes % (auto) 41.6 % (10.0-50.0); Mean Corpuscular Hemoglobin 30.9 pg (28.0-32.0); Mean Corpuscular Hgb Conc. 32.8 g/dL (32.0-36.0); Mean Corpuscular Volume 94.3 fL (80.0-100.0); Monocytes # (auto) 0.5 10 ^3/uL (0-1.3); Monocytes % (auto) 13.8 % (0.0-12.0); Neutrophils # (auto) 1.5 10 ^3/uL (1.6-8.6); Neutrophils % (auto) 43.6 % (37.0-80.0); Nucleated Red Blood Cells % 0.7 %; Red Blood Cells 3.34 10^6/uL (4.5-5.90); Red Cell Distribution Width 16.2 % (11.8-14.3); White Blood Cell 3.5 10^3/uL (4.4-10.8)
[2023-01-31 07:44] LABS: Blood Alcohol 400.5 mg/dL (<10)
[2023-01-31 07:52] LABS: Alanine Aminotransferase 79 U/L (7-40); Albumin 3.6 g/dL (3.2-4.8); Alkaline Phosphatase 86 U/L (46-116); Anion Gap 15 (5-15); Aspartate Aminotransferase 178 U/L (13-40); Blood Alcohol < 3.0 mg/dL (<10); Calcium 7.9 mg/dL (8.5-10.1); Carbon Dioxide 15 mmol/L (20-30); Chloride 108 mmol/L (98-107); Glucose 85 mg/dL (74-106); Potassium 4.1 mmol/L (3.5-5.1); Sodium 138 mmol/L (136-145)
[2023-01-31 07:53] LABS: Bilirubin, Total 2.3 mg/dL (0.2-1.0); Total Protein 6.6 g/dL (5.7-8.2)
[2023-01-31 07:56] LABS: BUN/Creatinine Ratio 8.6 (10.0-20.0); Blood Urea Nitrogen < 5 mg/dL (9-23)
[2023-01-31 08:00] VITALS: PULSE 63; RESP 20; O2SAT 93
[2023-01-31] MEDS ORDERED: MAGNESIUM SULFATE 1GM/100ML 100 ML IV ONE (09:45)
[2023-01-31] MEDS ORDERED: CALCIUM GLUC 1,000mg/50ml-NS 50 ML IV ONE (09:45)
[2023-01-31] MEDS: CYANOCOBALAMIN 500 MCG TAB PO SCH (10:22)
[2023-01-31] MEDS ORDERED: cloNIDine HCL 0.1 MG TAB PO PRN (10:30)
[2023-01-31 11:54] LABS: INR 1.16 (0.9-1.15); Prothrombin Time 12.1 sec (9.3-11.8)
[2023-01-31 12:06] LABS: % Iron Saturation 85.9 % (20-55)
[2023-01-31 12:23] LABS: Lactic Acid w/Reflex 2.8 mmol/L (0.4-2.0)
[2023-01-31] MEDS ORDERED: SODIUM CHLORIDE 0.9% 1,000 ML IV ONE (13:00)
[2023-01-31] MEDS: PANTOPRAZOLE 40 MG TAB PO SCH (14:29)
[2023-01-31] MEDS: GABAPENTIN 300 MG CAP PO SCH (14:29)
[2023-01-31] MEDS: ALLOPURINOL 100 MG TAB PO SCH (14:29)
[2023-01-31 14:37] VITALS: BP 155/98; PULSE 86; RESP 17; TEMP 97.6; O2SAT 93
[2023-01-31 17:24] VITALS: BP 151/95; PULSE 78; RESP 17; TEMP 97.5; O2SAT 99
[2023-01-31] MEDS: FOLIC ACID 1 MG, MAGNESIUM SULF SDV 50% 8 MEQ, MULTIPLE VITAMIN 10 ML, THIAMINE INJ 100... INJ SCH ×5 (18:12)
[2023-01-31 20:30] VITALS: PULSE 86; RESP 20; O2SAT 99
[2023-01-31 22:03] VITALS: BP 148/97; PULSE 84; RESP 20; TEMP 98.1; O2SAT 99
[2023-02-01] MEDS: GABAPENTIN 300 MG CAP PO SCH ×3 (00:43→14:04)
[2023-02-01] MEDS: METOPROLOL TARTRATE 50 MG TAB PO SCH ×2 (00:44→10:01)
[2023-02-01] MEDS ORDERED: chlordiazePOXIDE HCL 25 MG CAP PO ONE (01:30)
[2023-02-01 05:00] VITALS: BP 135/84; PULSE 84; RESP 20; TEMP 98.6; O2SAT 95
[2023-02-01] MEDS: D5W/ SOD CHL 0.9%/KCL 20MEQ 1,000 ML IV SCH (05:46)
[2023-02-01] MEDS ORDERED: ACETAMINOPHEN 325 MG TAB PO PRN (06:00)
[2023-02-01 06:03] LABS: Basophils # (auto) 0 10 ^3/uL (0-0.2); Basophils % (auto) 1.1 % (0.0-2.0); Eosinophils # (auto) 0 10 ^3/uL (0-0.8); Eosinophils % (auto) 0.5 % (0.0-7.0); Hematocrit 31.7 % (41.0-53.0); Hemoglobin 10.5 g/dL (13.5-17.5); Lymphocytes # (auto) 1.3 10 ^3/uL (0.4-5.4); Lymphocytes % (auto) 34.2 % (10.0-50.0); Mean Corpuscular Volume 93.8 fL (80.0-100.0); Monocytes # (auto) 0.3 10 ^3/uL (0-1.3); Neutrophils # (auto) 2.1 10 ^3/uL (1.6-8.6); Neutrophils % (auto) 55.2 % (37.0-80.0); Nucleated Red Blood Cells % 0.4 %; Red Blood Cells 3.37 10^6/uL (4.5-5.90); Red Cell Distribution Width 15.6 % (11.8-14.3); White Blood Cell 3.9 10^3/uL (4.4-10.8)
[2023-02-01 06:31] LABS: Alanine Aminotransferase 58 U/L (7-40); Alkaline Phosphatase 80 U/L (46-116); Anion Gap 10 (5-15); Carbon Dioxide 19 mmol/L (20-30); Chloride 108 mmol/L (98-107); Glucose 95 mg/dL (74-106); Potassium 3.7 mmol/L (3.5-5.1); Sodium 137 mmol/L (136-145)
[2023-02-01 06:32] LABS: Albumin 3.6 g/dL (3.2-4.8); Aspartate Aminotransferase 101 U/L (13-40); Bilirubin, Total 2.2 mg/dL (0.2-1.0); Total Protein 6.4 g/dL (5.7-8.2)
[2023-02-01 06:45] LABS: BUN/Creatinine Ratio 9.8 (10.0-20.0); Blood Urea Nitrogen < 5 mg/dL (9-23)
[2023-02-01] MEDS: ACCU-CHEK COMFORT CURVE STRIP VI SCH ×3 (07:03→11:29)
[2023-02-01 08:04] VITALS: PULSE 68
[2023-02-01 08:20] VITALS: BP 156/100; PULSE 76; RESP 14; TEMP 99.6; O2SAT 98
[2023-02-01 09:00] VITALS: BP 132/60; PULSE 62; RESP 14; TEMP 98.6; O2SAT 95
[2023-02-01] MEDS ORDERED: chlordiazePOXIDE HCL 25 MG CAP PO SCH (10:00)
[2023-02-01] MEDS ORDERED: LISINOPRIL 5 MG TAB PO SCH (10:00)
[2023-02-01] MEDS: ALLOPURINOL 100 MG TAB PO SCH (10:01)
[2023-02-01] MEDS: PANTOPRAZOLE 40 MG TAB PO SCH (10:02)
[2023-02-01] MEDS: CYANOCOBALAMIN 500 MCG TAB PO SCH (10:02)
[2023-02-01 12:40] VITALS: BP 127/78; PULSE 74; RESP 18; TEMP 98.7; O2SAT 97
[2023-02-01 13:00] VITALS: BP 127/78; PULSE 74; RESP 18; TEMP 98.7; O2SAT 97
[2023-02-02] MEDS ORDERED: chlordiazePOXIDE HCL 25 MG CAP PO SCH ×2 (07:00→10:00)
[2023-02-02 09:37] LABS: Hepatitis B Surface Antigen Negative (Negative)
[2023-02-02 09:56] LABS: Hepatitis A Ab IgM Negative
[2023-02-02 09:58] LABS: Hepatitis B Core IgM Negative; Hepatitis C Antibody Negative (Negative)
[2023-02-03] MEDS ORDERED: chlordiazePOXIDE HCL 25 MG CAP PO SCH (07:00)
== END 2023-02-01 17:07 | disposition home or self-care (01) | DRG 52 ==
LOC: ER 05:28 → EDBD 05:28 → TELE 12:05 → TELE-CENTR 21:55 → TELE-EAST 01-31 18:29
PROVIDERS: ADMIT Internal Medicine; ATTEND Internal Medicine
PROC: 05H933Z Insertion of Infusion Device into Right Brachial Vein, Percutaneous Approach (ICD-10-PCS; principal; 2023-01-30)
PROC: B54MZZA Ultrasonography of Right Upper Extremity Veins, Guidance (ICD-10-PCS; 2023-01-30)
DX: G92.9 Unspecified toxic encephalopathy (principal); E87.20 Acidosis, unspecified; K76.0 Fatty (change of) liver, not elsewhere classified; E86.0 Dehydration; F10.129 Alcohol abuse with intoxication, unspecified; F10.139 Alcohol abuse with withdrawal, unspecified; E16.2 Hypoglycemia, unspecified; I10 Essential (primary) hypertension; F32.A Depression, unspecified; F41.9 Anxiety disorder, unspecified; M10.9 Gout, unspecified; R00.0 Tachycardia, unspecified; R74.01 Elevation of levels of liver transaminase levels; Y90.8 Blood alcohol level of 240 mg/100 ml or more; E53.8 Deficiency of other specified B group vitamins
CPT/HCPCS: 36415; 70450; 71045; 76705; 80053; 80074; 80307; 80320; 80329; 81001; 82248; 82270; 82306; 82607; 82962; 83540; 83550; 83605; 83690; 83735; 83930; 83935; 84443; 84484; 85025; 85610; 87077; 87186; 87205; 93971; 96365; 96366; 96372; 96375; 97163; G0378; J2405

== ENCOUNTER 2023-02-27 11:43 | Emergency (ER) | payer MEDICAID ==
[~2023-02-27] VITALS: Ht 172.7 cm; Wt 100.0 kg
[~2023-02-27 11:43] MED LIST changes: -CHL25C PO
[2023-02-27] MEDS ORDERED: ONDANSETRON HCL 4 MG/2 ML VIAL IV ONE (12:00)
[2023-02-27] MEDS ORDERED: LORazepam 2MG/ML-1ML VIAL IV ONE ×2 (12:00→21:30)
[2023-02-27] MEDS ORDERED: SODIUM CHLORIDE 0.9% 1,000 ML IV ONE ×2 (12:00→21:15)
[2023-02-27] MEDS ORDERED: CHL10C PO (14:41)
[2023-02-27] MEDS ORDERED: ZOFR4T PO (15:52)
[2023-02-27] MEDS ORDERED: LORazepam 0.5 MG TAB PO ONE (21:15)
[2023-02-28] MEDS ORDERED: PANTOPRAZOLE 40 MG/10 ML VIAL INJ IV ONE (04:15)
[2023-02-28] MEDS ORDERED: LABETALOL HCL 5 MG/ML 4ML SYRINGE IV ONE (04:15)
[2023-02-28] MEDS ORDERED: LORazepam 2MG/ML-1ML VIAL IV ONE (04:15)
[2023-02-28] MEDS ORDERED: FOLIC ACID 1 MG, MULTIPLE VITAMIN 10 ML, MAGNESIUM SULF SDV 50% 8 MEQ, THIAMINE INJ 100... INJ SCH ×5 (18:00)
[2023-03-01 08:04] VITALS: BP 140/100; TEMP 98.3
[2023-03-01 08:12] VITALS: PULSE 76; RESP 18; O2SAT 96
== END 2023-03-01 08:04 | disposition home or self-care (01) ==
LOC: EDBD 11:43 → ER 11:43
DX: F10.139 Alcohol abuse with withdrawal, unspecified (principal); I10 Essential (primary) hypertension; Y90.3 Blood alcohol level of 60-79 mg/100 ml
CPT/HCPCS: 36415; 80320; 96361; 96374; 96375; 96376; 99284; C9113; J2060; J2405; J3490; J7030

== ENCOUNTER 2023-04-05 17:47 | Inpatient (IN) | payer MEDICAID ==
[~2023-04-05] VITALS: Ht 188 cm; Wt 102.9 kg
[~2023-04-05 17:47] MED LIST changes: +CHL10C PO; +ZOFR4T PO
[2023-04-05 18:47] LABS: Acetaminophen < 2.0 UG/ML (10.0-20.0)
[2023-04-05 18:48] LABS: Alanine Aminotransferase 35 U/L (7-40); Albumin 4.8 g/dL (3.2-4.8); Alkaline Phosphatase 106 U/L (46-116); Anion Gap 26 (5-15); Aspartate Aminotransferase 124 U/L (13-40); Bilirubin, Total 1.2 mg/dL (0.2-1.0); Calcium 8.8 mg/dL (8.5-10.1); Carbon Dioxide 17 mmol/L (20-30); Chloride 104 mmol/L (98-107); Glucose 96 mg/dL (74-106); Potassium 3.4 mmol/L (3.5-5.1); Sodium 147 mmol/L (136-145); Total Protein 8.7 g/dL (5.7-8.2)
[2023-04-05 18:49] LABS: Basophils # (auto) 0 10 ^3/uL (0-0.2); Basophils % (auto) 0.6 % (0.0-2.0); Eosinophils # (auto) 0 10 ^3/uL (0-0.8); Hematocrit 42.5 % (41.0-53.0); Hemoglobin 13.6 g/dL (13.5-17.5); Lymphocytes # (auto) 1.3 10 ^3/uL (0.4-5.4); Lymphocytes % (auto) 19.8 % (10.0-50.0); Mean Corpuscular Hemoglobin 29.6 pg (28.0-32.0); Mean Corpuscular Volume 92.7 fL (80.0-100.0); Monocytes # (auto) 0.2 10 ^3/uL (0-1.3); Monocytes % (auto) 2.5 % (0.0-12.0); Neutrophils % (auto) 77.1 % (37.0-80.0); Nucleated Red Blood Cells % 0.2 %; Red Blood Cells 4.58 10^6/uL (4.5-5.90); White Blood Cell 6.4 10^3/uL (4.4-10.8)
[2023-04-05 19:03] LABS: Salicylate < 3.0 mg/dL (2.8-20.0)
[2023-04-05 19:05] LABS: INR 1.09 (0.9-1.15); Prothrombin Time 11.4 sec (9.3-11.8)
[2023-04-05 19:10] LABS: BUN/Creatinine Ratio 7.7 (10.0-20.0); Blood Urea Nitrogen < 5 mg/dL (9-23)
[2023-04-05 19:13] LABS: Blood Alcohol 412.4 mg/dL (<10)
[2023-04-05] MEDS: ONDANSETRON HCL 4 MG/2 ML VIAL IM ONE (19:45)
[2023-04-06] MEDS: FOLIC ACID 1 MG, MAGNESIUM SULF SDV 50% 8 MEQ, MULTIPLE VITAMIN 10 ML, THIAMINE INJ 100... INJ SCH (01:30)
[2023-04-06] MEDS: THIAMINE 100mg/ml INJ (200mg/2ml VIAL) ONE (01:30)
[2023-04-06] MEDS: MVI in SODIUM CHLORIDE 0.9% 1,010 ML ONE (01:30)
[2023-04-06] MEDS ORDERED: FOLIC ACID 1 MG, MAGNESIUM SULF SDV 50% 8 MEQ, MULTIPLE VITAMIN 10 ML, THIAMINE INJ 100... INJ SCH ×2 (01:45→18:00)
[2023-04-06 01:48] VITALS: PULSE 150; RESP 24; O2SAT 96
[2023-04-06] MEDS: LORazepam 2MG/ML-1ML VIAL IV ONE ×2 (01:57→04:37)
[2023-04-06] MEDS: SODIUM CHLORIDE 0.9% 1,000 ML IV ONE ×2 (02:41→04:37)
[2023-04-06] MEDS ORDERED: DOCUSATE SOD 100 MG CAP PO PRN (03:00)
[2023-04-06 03:40] LABS: Basophils # (auto) 0 10 ^3/uL (0-0.2); Basophils % (auto) 0.4 % (0.0-2.0); Eosinophils # (auto) 0 10 ^3/uL (0-0.8); Hematocrit 41.6 % (41.0-53.0); Hemoglobin 13.3 g/dL (13.5-17.5); Lymphocytes # (auto) 0.7 10 ^3/uL (0.4-5.4); Lymphocytes % (auto) 6.7 % (10.0-50.0); Mean Corpuscular Hemoglobin 30.4 pg (28.0-32.0); Mean Corpuscular Hgb Conc. 32.1 g/dL (32.0-36.0); Mean Corpuscular Volume 94.8 fL (80.0-100.0); Monocytes # (auto) 0.5 10 ^3/uL (0-1.3); Monocytes % (auto) 4.8 % (0.0-12.0); Neutrophils # (auto) 9.2 10 ^3/uL (1.6-8.6); Neutrophils % (auto) 88.1 % (37.0-80.0); Nucleated Red Blood Cells % 0.1 %; Red Blood Cells 4.39 10^6/uL (4.5-5.90); Red Cell Distribution Width 17.6 % (11.8-14.3); White Blood Cell 10.4 10^3/uL (4.4-10.8)
[2023-04-06 03:52] LABS: Alanine Aminotransferase 33 U/L (7-40); Albumin 4.8 g/dL (3.2-4.8); Alkaline Phosphatase 88 U/L (46-116); Anion Gap 29 (5-15); Aspartate Aminotransferase 117 U/L (13-40); BUN/Creatinine Ratio 6.9 (10.0-20.0); Blood Urea Nitrogen 7 mg/dL (9-23); Calcium 8.3 mg/dL (8.7-10.4); Carbon Dioxide 13 mmol/L (20-30); Chloride 104 mmol/L (98-107); Glucose 126 mg/dL (74-106); Potassium 3.5 mmol/L (3.5-5.1); Sodium 146 mmol/L (136-145)
[2023-04-06 03:53] LABS: Bilirubin, Total 1.8 mg/dL (0.2-1.0); Total Protein 8.6 g/dL (5.7-8.2)
[2023-04-06] MEDS: LORazepam 2MG/ML-1ML VIAL IV PRN (04:22)
[2023-04-06] MEDS: ACETAMINOPHEN 325 MG TAB PO PRN (04:23)
[2023-04-06] MEDS ORDERED: MORPHINE SULFATE INJ 2 MG/ml SYRG IV PRN (05:00)
[2023-04-06] MEDS ORDERED: NITROGLYCERIN 0.4 MG SL TAB SL PRN (05:00)
[2023-04-06] MEDS: METOPROLOL TARTRATE 1MG/1ML-5ML VIAL IV ONE (05:39)
[2023-04-06 07:32] VITALS: PULSE 140; RESP 20; O2SAT 93
[2023-04-06] MEDS: ONDANSETRON HCL 4 MG/2 ML VIAL IV PRN (07:48)
[2023-04-06] MEDS: METOPROLOL TARTRATE 50 MG TAB PO SCH (08:51)
[2023-04-06] MEDS: HYDROcodone-ACET 5/325MG TAB PO PRN (10:15)
[2023-04-06 11:05] LABS: Amphetamine Screen, Urine Neg (NEGATIVE); Barbiturate Scree,Urine Neg (NEGATIVE); Benzodiazephine Screen, Urine Pos (NEGATIVE); Cannabinoid Screen, Urine Neg (NEGATIVE); Cocaine Screen, Urine Neg (NEGATIVE); Opiate Scree,Urine Neg (NEGATIVE); Phencyclidine Screen, Urine Neg (NEGATIVE)
[2023-04-06] MEDS: chlordiazePOXIDE HCL 25 MG CAP PO SCH (11:10)
[2023-04-06 11:14] LABS: Base Excess -3.5 mmol/L (-2.0-2.0)
[2023-04-06 11:14] LABS: Urine Bacteria NONE SEEN /hpf (None Seen); Urine Blood 1+ /uL (Negative); Urine Clarity HAZY (Clear); Urine Color PINK (Yellow); Urine Hyaline Cast MOD /lpf (0 - 2); Urine Mucus FEW (None Seen); Urine Protein, UAD 3+ (Negative); Urine Specific Gravity 1.028 (1.001-1.035); Urine WBC 5 /hpf (0 - 3)
[2023-04-06] MEDS: THROAT LOZENGES(CEPASTAT) MT PRN (13:59)
[2023-04-06] MEDS: levoFLOXacin 500MG 100 ML IV ONE (15:05)
[2023-04-06] MEDS: cloNIDine HCL 0.1 MG TAB PO ONE (15:06)
[2023-04-06] MEDS: SOD CHL 0.45% 1,000 ML IV SCH (16:30)
[2023-04-06] MEDS: LABETALOL HCL 5 MG/ML 4ML SYRINGE IV PRN (18:40)
[2023-04-06 19:30] VITALS: PULSE 112; RESP 18; O2SAT 94
[2023-04-06 21:38] VITALS: BP 144/97; PULSE 119; RESP 19; TEMP 98.5; O2SAT 97
[2023-04-06] MEDS: cloNIDine HCL 0.1 MG TAB PO SCH (21:56)
[2023-04-06] MEDS: GABAPENTIN 100 MG CAP PO SCH (21:58)
[2023-04-07] VITALS (8 sets, daily range): BP systolic 131–153; BP diastolic 83–99; PULSE 86–119; RESP 16–20; TEMP 98–98.7; O2SAT 91–100
[2023-04-07 07:13] LABS: Basophils # (auto) 0 10 ^3/uL (0-0.2); Basophils % (auto) 0.5 % (0.0-2.0); Eosinophils # (auto) 0 10 ^3/uL (0-0.8); Eosinophils % (auto) 0.1 % (0.0-7.0); Hematocrit 31.4 % (41.0-53.0); Hemoglobin 10.5 g/dL (13.5-17.5); Lymphocytes # (auto) 1.2 10 ^3/uL (0.4-5.4); Mean Corpuscular Hemoglobin 30.2 pg (28.0-32.0); Mean Corpuscular Hgb Conc. 33.4 g/dL (32.0-36.0); Mean Corpuscular Volume 90.2 fL (80.0-100.0); Monocytes # (auto) 0.2 10 ^3/uL (0-1.3); Monocytes % (auto) 2.6 % (0.0-12.0); Neutrophils # (auto) 5.1 10 ^3/uL (1.6-8.6); Neutrophils % (auto) 77.8 % (37.0-80.0); Nucleated Red Blood Cells % 0.2 %; Red Blood Cells 3.48 10^6/uL (4.5-5.90); Red Cell Distribution Width 16.3 % (11.8-14.3); White Blood Cell 6.5 10^3/uL (4.4-10.8)
[2023-04-07 07:19] LABS: Alanine Aminotransferase 18 U/L (7-40); Albumin 3.7 g/dL (3.2-4.8); Alkaline Phosphatase 53 U/L (46-116); Anion Gap 9 (5-15); Aspartate Aminotransferase 54 U/L (13-40); Bilirubin, Total 2.8 mg/dL (0.2-1.0); Calcium 7.7 mg/dL (8.7-10.4); Carbon Dioxide 28 mmol/L (20-30); Chloride 102 mmol/L (98-107); Glucose 104 mg/dL (74-106); Phosphorus 1.5 mg/dL (2.4-5.1); Potassium 2.6 mmol/L (3.5-5.1); Sodium 139 mmol/L (136-145); Total Protein 6.6 g/dL (5.7-8.2)
[2023-04-07 07:21] LABS: BUN/Creatinine Ratio 8.6 (10.0-20.0); Blood Urea Nitrogen < 5 mg/dL (9-23)
[2023-04-07] MEDS: ALLOPURINOL 100 MG TAB PO SCH (09:13)
[2023-04-07] MEDS: chlordiazePOXIDE HCL 25 MG CAP PO SCH (09:15)
[2023-04-07] MEDS: levoFLOXacin 500MG 100 ML IV SCH (09:18)
[2023-04-07] MEDS: MAGNESIUM SULFATE 1GM/100ML 100 ML IV SCH (10:37)
[2023-04-07] MEDS: POTASSIUM CHL 20 Meq TABLET PO ONE (10:37)
[2023-04-07] MEDS: SOD CHL 0.45% 1,000 ML IV SCH (10:45)
[2023-04-07] MEDS: POTASSIUM CHLORIDE 60 MEQ, LIDOCAINE 1% (LOCAL ANESTH.) 6 ML in SODIUM CHL 0.9% 500 ML IV ONE (12:27)
[2023-04-07] MEDS: MAGNESIUM SULFATE 1GM/100ML 100 ML IV ONE (14:31)
[2023-04-08] VITALS (7 sets, daily range): BP systolic 139–161; BP diastolic 83–101; PULSE 76–107; RESP 18–20; TEMP 98.5–99.4; O2SAT 93–98
[2023-04-08] MEDS: chlordiazePOXIDE HCL 25 MG CAP PO SCH (08:59)
[2023-04-08 11:21] LABS: Chloride 106 mmol/L (98-107); Potassium 2.8 mmol/L (3.5-5.1); Sodium 138 mmol/L (136-145)
[2023-04-08 11:22] LABS: Anion Gap 8 (5-15); Calcium 7.7 mg/dL (8.7-10.4); Carbon Dioxide 24 mmol/L (20-30)
[2023-04-08 11:27] LABS: BUN/Creatinine Ratio 10.2 (10.0-20.0); Blood Urea Nitrogen < 5 mg/dL (9-23); Glucose 135 mg/dL (74-106)
[2023-04-08 11:28] LABS: Magnesium 1.2 mg/dL (1.6-2.6)
[2023-04-08] MEDS: POTASSIUM CHL 20 Meq TABLET PO ONE (13:15)
[2023-04-08] MEDS: MAGNESIUM SULFATE 1GM/100ML 100 ML IV SCH (13:15)
[2023-04-08] MEDS: POTASSIUM CHLORIDE 40 MEQ, LIDOCAINE 1% (LOCAL ANESTH.) 4 ML in SODIUM CHL 0.9% 250 ML IV ONE (13:25)
[2023-04-08] MEDS: Ensure HIGH Protein Chocolate 8oz Bottle PO SCH (17:44)
[2023-04-08] MEDS: POTASSIUM PHOSPHATE 26.4 MEQ in SODIUM CHL 0.9% 100 ML IV ONE (17:55)
[2023-04-09 05:00] VITALS: BP 149/97; PULSE 84; RESP 20; TEMP 98.9; O2SAT 96
[2023-04-09] MEDS: chlordiazePOXIDE HCL 25 MG CAP PO SCH (06:11)
[2023-04-09 06:22] LABS: Chloride 105 mmol/L (98-107); Sodium 138 mmol/L (136-145)
[2023-04-09 06:23] LABS: Anion Gap 9 (5-15); Carbon Dioxide 24 mmol/L (20-30)
[2023-04-09 06:28] LABS: Glucose 110 mg/dL (74-106); Magnesium 1.4 mg/dL (1.6-2.6)
[2023-04-09 06:34] LABS: BUN/Creatinine Ratio 11.4 (10.0-20.0); Blood Urea Nitrogen < 5 mg/dL (9-23)
[2023-04-09 08:00] VITALS: PULSE 91
[2023-04-09 08:58] VITALS: BP 156/85; PULSE 84; RESP 18; TEMP 98.2; O2SAT 97
[2023-04-09] MEDS ORDERED: MULT-351 PO (11:15)
[2023-04-09] MEDS ORDERED: LEVO500T91 PO (11:15)
[2023-04-09 13:09] VITALS: BP 148/94; PULSE 74; RESP 20; TEMP 97.9; O2SAT 98
[2023-04-09] MEDS: MAGNESIUM OXIDE 400 MG TAB PO ONE (14:05)
[2023-04-09] MEDS: POTASSIUM CHL 20 Meq TABLET PO ONE (14:06)
== END 2023-04-09 15:45 | disposition home or self-care (01) | DRG 137 ==
LOC: ER 17:47 → EDBD 17:47 → TELE 04-06 04:54 → TELE-WESTW 04-06 20:45
PROVIDERS: ADMIT Nurse Practitioner Family; ATTEND Internal Medicine
DX: J15.69 Pneumonia due to other Gram-negative bacteria (principal); J96.00 Acute respiratory failure, unspecified whether with hypoxia or hypercapnia; F10.131 Alcohol abuse with withdrawal delirium; J15.9 Unspecified bacterial pneumonia; E83.39 Other disorders of phosphorus metabolism; D69.59 Other secondary thrombocytopenia; K70.9 Alcoholic liver disease, unspecified; I10 Essential (primary) hypertension; G62.9 Polyneuropathy, unspecified; E83.42 Hypomagnesemia; E87.6 Hypokalemia; I25.10 Atherosclerotic heart disease of native coronary artery without angina pectoris; M10.9 Gout, unspecified
CPT/HCPCS: 36415; 36600; 70450; 71045; 80048; 80053; 80307; 80320; 80329; 81001; 82805; 82962; 83690; 83735; 84100; 84484; 85025; 85610; 85730; 87040; 93005; 96372; 97110; 97116; 97163; 97530; G0378; J1956; J2001; J2405; J3490

== ENCOUNTER 2023-06-09 20:26 | Inpatient (IN) | payer MEDICAID ==
[~2023-06-09] VITALS: Ht 200.7 cm; Wt 95.3 kg
[~2023-06-09 20:26] MED LIST changes: +LEVO500T91 PO; +MULT-351 PO
[2023-06-09] MEDS: LORazepam 2MG/ML-1ML VIAL IV ONE (21:54)
[2023-06-09 22:19] LABS: Basophils # (auto) 0.1 10 ^3/uL (0-0.2); Basophils % (auto) 0.8 % (0.0-2.0); Eosinophils # (auto) 0 10 ^3/uL (0-0.8); Hematocrit 37.6 % (41.0-53.0); Lymphocytes # (auto) 1.6 10 ^3/uL (0.4-5.4); Lymphocytes % (auto) 25.6 % (10.0-50.0); Mean Corpuscular Hemoglobin 28.8 pg (28.0-32.0); Mean Corpuscular Volume 90.2 fL (80.0-100.0); Monocytes # (auto) 0.1 10 ^3/uL (0-1.3); Monocytes % (auto) 2.3 % (0.0-12.0); Neutrophils # (auto) 4.6 10 ^3/uL (1.6-8.6); Neutrophils % (auto) 71.3 % (37.0-80.0); Nucleated Red Blood Cells % 0.1 %; Red Blood Cells 4.17 10^6/uL (4.5-5.90); Red Cell Distribution Width 18.6 % (11.8-14.3); White Blood Cell 6.4 10^3/uL (4.4-10.8)
[2023-06-09 22:37] LABS: Alanine Aminotransferase 47 U/L (7-40); Albumin 4.8 g/dL (3.2-4.8); Alkaline Phosphatase 95 U/L (46-116); Anion Gap 20 (5-15); Aspartate Aminotransferase 140 U/L (13-40); BUN/Creatinine Ratio 8.6 (10.0-20.0); Bilirubin, Total 0.9 mg/dL (0.2-1.0); Blood Urea Nitrogen 7 mg/dL (9-23); Calcium 9.4 mg/dL (8.5-10.1); Carbon Dioxide 18 mmol/L (20-30); Chloride 106 mmol/L (98-107); Glucose 60 mg/dL (74-106); Potassium 4.4 mmol/L (3.5-5.1); Sodium 144 mmol/L (136-145); Total Protein 8.4 g/dL (5.7-8.2)
[2023-06-09 22:45] LABS: Blood Alcohol 352.2 mg/dL (<10)
[2023-06-09 23:04] LABS: Lactic Acid w/Reflex 7.7 mmol/L (0.4-2.0)
[2023-06-09 23:12] LABS: INR 1.1 (0.9-1.15); Partial Thromboplastin Time 25.4 SEC (24.5-34.5); Prothrombin Time 11.6 sec (9.3-11.8)
[2023-06-09 23:25] LABS: Lipase 31 U/L (12-53)
[2023-06-10] MEDS: IOHEXOL 350 MG/ML 100ML IJ ONE (02:19)
[2023-06-10 02:30] VITALS: PULSE 120; RESP 18; O2SAT 94
[2023-06-10] MEDS ORDERED: LORazepam 2MG/ML-1ML VIAL IV PRN ×2 (02:45→15:30)
[2023-06-10] MEDS: PIPERACILLIN-TAZOB 3.375GM 100 ML IV ONE (02:45)
[2023-06-10] MEDS: SODIUM CHLORIDE 0.9% 2,000 ML IV ONE (02:50)
[2023-06-10] MEDS ORDERED: MORPHINE SULFATE INJ 2 MG/ml SYRG IV PRN ×2 (03:00→17:00)
[2023-06-10] MEDS ORDERED: ONDANSETRON HCL 4 MG/2 ML VIAL IV PRN ×2 (03:00→17:00)
[2023-06-10] MEDS: SODIUM CHLORIDE 0.9% 1,000 ML IV ONE (03:00)
[2023-06-10] MEDS ORDERED: TEMAZEPAM 15 MG CAP PO PRN (03:00)
[2023-06-10] MEDS ORDERED: NITROGLYCERIN 0.4 MG SL TAB SL PRN (03:00)
[2023-06-10] MEDS: VANCOMYCIN 1GM/200ML 200 ML IV ONE (03:38)
[2023-06-10 03:58] LABS: Lactic Acid w/Reflex 5.7 mmol/L (0.4-2.0)
[2023-06-10 04:20] LABS: Urine Bacteria None Seen /hpf (None Seen)
[2023-06-10] MEDS: chlordiazePOXIDE HCL 25 MG CAP PO PRN (04:24)
[2023-06-10 04:27] LABS: Urine Blood TRACE /uL (Negative); Urine Clarity Clear (Clear); Urine Color Yellow (Yellow); Urine Hyaline Cast MANY /lpf (0 - 2); Urine Mucus FEW (None Seen); Urine Protein, UAD 1+ (Negative); Urine Urobilinogen Normal (Negative); Urine WBC 1 /hpf (0 - 3); Urine pH 5.5 (5.0-9.0)
[2023-06-10 04:41] LABS: Amphetamine Screen, Urine Neg (NEGATIVE); Barbiturate Scree,Urine Neg (NEGATIVE); Benzodiazephine Screen, Urine Neg (NEGATIVE); Cannabinoid Screen, Urine Neg (NEGATIVE); Cocaine Screen, Urine Neg (NEGATIVE); Opiate Scree,Urine Neg (NEGATIVE); Phencyclidine Screen, Urine Neg (NEGATIVE)
[2023-06-10] MEDS: ACETAMINOPHEN 325 MG TAB PO PRN (09:54)
[2023-06-10] MEDS: METOPROLOL TARTRATE 25 MG TAB PO SCH (09:54)
[2023-06-10] MEDS: FOLIC ACID 1 MG, MAGNESIUM SULF SDV 50% 8 MEQ, MULTIPLE VITAMIN 10 ML, THIAMINE INJ 100... INJ SCH (09:55)
[2023-06-10] MEDS: LORazepam 2MG/ML-1ML VIAL IV PRN (10:41)
[2023-06-10] MEDS: LORazepam 2MG/ML-1ML VIAL ONE (10:44)
[2023-06-10] MEDS ORDERED: HYDROcodone-ACET 5/325MG TAB PO PRN (17:00)
[2023-06-10] MEDS: chlordiazePOXIDE HCL 25 MG CAP PO SCH (18:04)
[2023-06-10 18:44] VITALS: BP 156/93; PULSE 100; RESP 18; TEMP 98.2; O2SAT 99
[2023-06-10 20:00] VITALS: PULSE 94
[2023-06-10 21:00] VITALS: BP 155/99; PULSE 98; RESP 18; TEMP 97.9; O2SAT 97
[2023-06-11 01:00] VITALS: BP 150/89; PULSE 90; RESP 18; TEMP 97.6; O2SAT 98
[2023-06-11 04:56] VITALS: BP 154/95; PULSE 85; RESP 16; TEMP 97.5; O2SAT 98
[2023-06-11 06:44] LABS: Alanine Aminotransferase 24 U/L (7-40); Albumin 3.8 g/dL (3.2-4.8); Alkaline Phosphatase 73 U/L (46-116); Aspartate Aminotransferase 65 U/L (13-40); Bilirubin, Total 2.6 mg/dL (0.2-1.0); Carbon Dioxide 21 mmol/L (20-30); Glucose 95 mg/dL (74-106); Total Protein 6.9 g/dL (5.7-8.2)
[2023-06-11 06:50] LABS: BUN/Creatinine Ratio 9.1 (10.0-20.0); Blood Urea Nitrogen < 5 mg/dL (9-23)
[2023-06-11 06:54] LABS: Anion Gap 10 (5-15); Chloride 106 mmol/L (98-107); Potassium 3.5 mmol/L (3.5-5.1); Sodium 137 mmol/L (136-145)
[2023-06-11 08:00] VITALS: PULSE 85
[2023-06-11 09:00] VITALS: BP_SYST 106; PULSE 90; RESP 2; TEMP 98.5; O2SAT 99
[2023-06-11] MEDS ORDERED: THIA100T10 PO (12:49)
[2023-06-11] MEDS ORDERED: METR-344 PO (12:49)
[2023-06-11] MEDS ORDERED: LEVO500T91 PO (12:49)
[2023-06-11 13:00] VITALS: BP 155/93; PULSE 79; RESP 18; TEMP 98.8; O2SAT 96
[2023-06-11 14:33] VITALS: BP 155/93; PULSE 90; RESP 18; TEMP 37.1
== END 2023-06-11 15:58 | disposition home or self-care (01) | DRG 280 ==
LOC: ER 20:26 → EDBD 20:26 → TELE 06-10 02:06 → TELE-EAST 06-10 18:26
PROVIDERS: ADMIT Nurse Practitioner; ATTEND Nurse Practitioner Acute Care
DX: K70.9 Alcoholic liver disease, unspecified (principal); F10.131 Alcohol abuse with withdrawal delirium; E87.20 Acidosis, unspecified; I10 Essential (primary) hypertension; M10.9 Gout, unspecified; R44.1 Visual hallucinations; R41.0 Disorientation, unspecified; Y90.8 Blood alcohol level of 240 mg/100 ml or more
CPT/HCPCS: 36415; 70450; 71045; 71275; 80053; 80307; 80320; 81001; 83605; 83690; 84484; 85025; 85379; 85610; 85730; 87040; 93005; 96365; 96375; 97163; G0378; J2543

== ENCOUNTER 2023-06-23 15:21 | Inpatient (IN) | payer MEDICAID ==
[~2023-06-23] VITALS: Ht 193 cm; Wt 105.8 kg
[~2023-06-23 15:21] MED LIST changes: +METR-344 PO; +THIA100T10 PO
[2023-06-23 18:44] LABS: Basophils # (auto) 0 10 ^3/uL (0-0.2); Basophils % (auto) 0.6 % (0.0-2.0); Eosinophils # (auto) 0 10 ^3/uL (0-0.8); Hematocrit 38.2 % (41.0-53.0); Hemoglobin 12.5 g/dL (13.5-17.5); Lymphocytes # (auto) 1.9 10 ^3/uL (0.4-5.4); Lymphocytes % (auto) 33.8 % (10.0-50.0); Mean Corpuscular Hemoglobin 28.6 pg (28.0-32.0); Mean Corpuscular Hgb Conc. 32.7 g/dL (32.0-36.0); Mean Corpuscular Volume 87.4 fL (80.0-100.0); Monocytes # (auto) 0.3 10 ^3/uL (0-1.3); Monocytes % (auto) 5.6 % (0.0-12.0); Neutrophils # (auto) 3.5 10 ^3/uL (1.6-8.6); Nucleated Red Blood Cells % 0.2 %; Red Blood Cells 4.37 10^6/uL (4.5-5.90); Red Cell Distribution Width 17.1 % (11.8-14.3); White Blood Cell 5.8 10^3/uL (4.4-10.8)
[2023-06-23 19:02] LABS: INR 1.13 (0.9-1.15); Prothrombin Time 11.9 sec (9.3-11.8)
[2023-06-23 19:09] LABS: Acetaminophen < 2.0 UG/ML (10.0-20.0); Alanine Aminotransferase 48 U/L (7-40); Albumin 5.1 g/dL (3.2-4.8); Alkaline Phosphatase 92 U/L (46-116); Anion Gap 22 (5-15); Aspartate Aminotransferase 155 U/L (13-40); BUN/Creatinine Ratio 15.7 (10.0-20.0); Blood Urea Nitrogen 18 mg/dL (9-23); Calcium 9.4 mg/dL (8.5-10.1); Carbon Dioxide 17 mmol/L (20-30); Chloride 101 mmol/L (98-107); Glucose 102 mg/dL (74-106); Sodium 140 mmol/L (136-145)
[2023-06-23 19:10] LABS: Bilirubin, Total 1.4 mg/dL (0.2-1.0); Total Protein 8.6 g/dL (5.7-8.2)
[2023-06-23 19:19] LABS: Salicylate < 3.0 mg/dL (2.8-20.0)
[2023-06-23 19:25] LABS: Blood Alcohol 404.2 mg/dL (<10)
[2023-06-23 19:36] LABS: Lipase 47 U/L (12-53)
[2023-06-23 23:54] VITALS: PULSE 140; RESP 18; O2SAT 96
[2023-06-24] MEDS: chlordiazePOXIDE HCL 25 MG CAP PO ONE (00:57)
[2023-06-24] MEDS: METOPROLOL TARTRATE 50 MG TAB PO ONE (00:57)
[2023-06-24] MEDS: ONDANSETRON HCL 4 MG/2 ML VIAL IV ONE (01:45)
[2023-06-24] MEDS: SODIUM CHLORIDE 0.9% 1,000 ML IV ONE (01:45)
[2023-06-24] MEDS: LORazepam 2MG/ML-1ML VIAL IV ONE ×2 (01:45→09:25)
[2023-06-24] MEDS ORDERED: ONDANSETRON HCL 4 MG/2 ML VIAL IV PRN (05:45)
[2023-06-24] MEDS ORDERED: NITROGLYCERIN 0.4 MG SL TAB SL PRN (05:45)
[2023-06-24] MEDS ORDERED: MORPHINE SULFATE INJ 2 MG/ml SYRG IV PRN (05:45)
[2023-06-24] MEDS ORDERED: chlordiazePOXIDE HCL 25 MG CAP PO PRN (05:45)
[2023-06-24] MEDS: ALLOPURINOL 100 MG TAB PO ONE (07:03)
[2023-06-24] MEDS: LACTULOSE 20Gm/30ML SOLN PO ONE (07:03)
[2023-06-24] MEDS: GABAPENTIN 300 MG CAP PO ONE (07:03)
[2023-06-24] MEDS: GABAPENTIN 300 MG CAP PO SCH (07:04)
[2023-06-24] MEDS ORDERED: LORazepam 2MG/ML-1ML VIAL IV PRN (09:15)
[2023-06-24] MEDS: amLODIPine BESYLATE 5 MG TAB PO SCH (10:00)
[2023-06-24] MEDS: busPIRone HCL 10 MG TAB PO SCH (10:00)
[2023-06-24] MEDS: METOPROLOL TARTRATE 50 MG TAB PO SCH (10:00)
[2023-06-24] MEDS: LACTULOSE 20Gm/30ML SOLN PO SCH (10:00)
[2023-06-24 10:23] VITALS: PULSE 120; RESP 25; O2SAT 95
[2023-06-24] MEDS: LACTATED RINGER'S 1,000 ML IV SCH (17:02)
[2023-06-24] MEDS: LORazepam 2MG/ML-1ML VIAL IV SCH (17:11)
[2023-06-24 21:00] VITALS: BP 137/90; PULSE 90; RESP 18; TEMP 99.9; O2SAT 95
[2023-06-24] MEDS ORDERED: MORPHINE SULFATE 4 MG/ML SYR/VIAL IV PRN (21:00)
[2023-06-24 21:45] VITALS: BP 137/90; PULSE 90; RESP 18; TEMP 99.9; O2SAT 95
[2023-06-25 05:00] VITALS: BP 148/97; PULSE 104; RESP 18; TEMP 98; O2SAT 93
[2023-06-25 05:51] LABS: Chloride 98 mmol/L (98-107); Potassium 3.8 mmol/L (3.5-5.1)
[2023-06-25 05:52] LABS: Anion Gap 9 (5-15); Calcium 9.3 mg/dL (8.7-10.4); Carbon Dioxide 28 mmol/L (20-30)
[2023-06-25 05:57] LABS: BUN/Creatinine Ratio 20.7 (10.0-20.0); Blood Urea Nitrogen 12 mg/dL (9-23); Glucose 113 mg/dL (74-106); Sodium 135 mmol/L (136-145)
[2023-06-25] MEDS: FOLIC ACID 1 MG, MAGNESIUM SULF SDV 50% 8 MEQ, MULTIPLE VITAMIN 10 ML, THIAMINE INJ 100... INJ SCH (07:27)
[2023-06-25 08:43] VITALS: BP 145/95; PULSE 105; RESP 18; TEMP 98.1; O2SAT 98
[2023-06-25] MEDS ORDERED: chlordiazePOXIDE HCL 5 MG CAP PO ONE (10:45)
[2023-06-25 12:47] VITALS: BP_SYST 104; BP_SYST 144; BP_DIAS 69; BP_DIAS 98; PULSE 68; PULSE 94; RESP 18; TEMP 98.2; O2SAT 95; O2SAT 97
== END 2023-06-25 12:05 | disposition left against medical advice (07) | DRG 816 ==
LOC: ER 15:21 → EDSEX 15:21 → EDBD 15:21 → TELE 06-24 05:48 → TELE-WESTW 06-24 20:07
PROVIDERS: ADMIT Nurse Practitioner; ATTEND Nurse Practitioner Acute Care
DX: T51.91XA Toxic effect of unspecified alcohol, accidental (unintentional), initial encounter (principal); G92.8 Other toxic encephalopathy; I10 Essential (primary) hypertension; M10.9 Gout, unspecified; F32.A Depression, unspecified; F41.9 Anxiety disorder, unspecified; Z53.29 Procedure and treatment not carried out because of patient's decision for other reasons; K74.60 Unspecified cirrhosis of liver; Y90.9 Presence of alcohol in blood, level not specified; F10.229 Alcohol dependence with intoxication, unspecified; F10.239 Alcohol dependence with withdrawal, unspecified; Y90.8 Blood alcohol level of 240 mg/100 ml or more
CPT/HCPCS: 36415; 70450; 71045; 80048; 80053; 80320; 80329; 82140; 83690; 83735; 85025; 85610; 87081; 93005; G0378; J2405

== ENCOUNTER 2023-07-10 20:10 | Inpatient (IN) | payer MEDICAID ==
[~2023-07-10] VITALS: Ht 193 cm; Wt 107.1 kg
[~2023-07-10 20:10] MED LIST changes: -CHL10C PO; -FOLI-119 PO; -LEVO500T91 PO; -LISI-275 PO; -METR-344 PO; -MULT-351 PO; -MULT1TAB95 PO; -PANT40T PO; -THIA100T10 PO; -THIA100T13 PO; -ZOFR4T PO
[2023-07-10 21:19] LABS: Anion Gap 25 (5-15); Carbon Dioxide 14 mmol/L (20-30); Chloride 95 mmol/L (98-107); Sodium 134 mmol/L (136-145)
[2023-07-10 21:20] LABS: Calcium 9.7 mg/dL (8.5-10.1)
[2023-07-10 21:24] LABS: Glucose 57 mg/dL (74-106)
[2023-07-10 21:25] LABS: BUN/Creatinine Ratio 10.4 (10.0-20.0); Blood Urea Nitrogen 8 mg/dL (9-23)
[2023-07-10] MEDS: LORazepam 2MG/ML-1ML VIAL IM ONE (21:54)
[2023-07-10 22:13] LABS: Basophils # (auto) 0.1 10 ^3/uL (0-0.2); Basophils % (auto) 1.6 % (0.0-2.0); Eosinophils # (auto) 0 10 ^3/uL (0-0.8); Hemoglobin 12.2 g/dL (13.5-17.5); Lymphocytes # (auto) 1.4 10 ^3/uL (0.4-5.4); Lymphocytes % (auto) 41.1 % (10.0-50.0); Mean Corpuscular Hemoglobin 29.3 pg (28.0-32.0); Mean Corpuscular Hgb Conc. 33.1 g/dL (32.0-36.0); Mean Corpuscular Volume 88.7 fL (80.0-100.0); Monocytes # (auto) 0.2 10 ^3/uL (0-1.3); Monocytes % (auto) 5.5 % (0.0-12.0); Neutrophils # (auto) 1.7 10 ^3/uL (1.6-8.6); Neutrophils % (auto) 51.8 % (37.0-80.0); Nucleated Red Blood Cells % 0.5 %; Red Blood Cells 4.17 10^6/uL (4.5-5.90); Red Cell Distribution Width 16.8 % (11.8-14.3); White Blood Cell 3.3 10^3/uL (4.4-10.8)
[2023-07-10] MEDS ORDERED: DOCUSATE SOD 100 MG CAP PO PRN (23:00)
[2023-07-10] MEDS ORDERED: ONDANSETRON HCL 4 MG/2 ML VIAL IV PRN (23:00)
[2023-07-10] MEDS ORDERED: ACETAMINOPHEN 325 MG TAB PO PRN (23:00)
[2023-07-10] MEDS ORDERED: HYDROcodone-ACET 5/325MG TAB PO PRN (23:00)
[2023-07-10] MEDS ORDERED: MORPHINE SULFATE INJ 2 MG/ml SYRG IV PRN (23:30)
[2023-07-10] MEDS ORDERED: NITROGLYCERIN 0.4 MG SL TAB SL PRN (23:30)
[2023-07-11] VITALS: PULSE 136; RESP 26; O2SAT 98
[2023-07-11] MEDS: LORazepam 2MG/ML-1ML VIAL IV ONE (00:22)
[2023-07-11] MEDS: THIAMINE 100mg/ml INJ (200mg/2ml VIAL) IV ONE (00:22)
[2023-07-11] MEDS: D5W/SOD CHLO 0.9% 1,000 ML IV ONE ×2 (00:22→00:24)
[2023-07-11] MEDS: SODIUM CHLORIDE 0.9% 1,000 ML IV SCH (01:53)
[2023-07-11] MEDS: LORazepam 2MG/ML-1ML VIAL IV PRN (03:35)
[2023-07-11 05:07] LABS: Basophils # (auto) 0.1 10 ^3/uL (0-0.2); Eosinophils # (auto) 0 10 ^3/uL (0-0.8); Monocytes # (auto) 0.3 10 ^3/uL (0-1.3)
[2023-07-11 05:14] LABS: Basophils % (auto) 1.6 % (0.0-2.0); Eosinophils % (auto) 0.6 % (0.0-7.0); Hematocrit 32.7 % (41.0-53.0); Lymphocytes # (auto) 1.9 10 ^3/uL (0.4-5.4); Lymphocytes % (auto) 50.4 % (10.0-50.0); Mean Corpuscular Hgb Conc. 33.7 g/dL (32.0-36.0); Mean Corpuscular Volume 86.1 fL (80.0-100.0); Monocytes % (auto) 7.7 % (0.0-12.0); Neutrophils # (auto) 1.5 10 ^3/uL (1.6-8.6); Neutrophils % (auto) 39.7 % (37.0-80.0); Nucleated Red Blood Cells % 0.5 %; Red Cell Distribution Width 16.9 % (11.8-14.3); White Blood Cell 3.7 10^3/uL (4.4-10.8)
[2023-07-11 05:18] LABS: Platelet Estimate Decreased
[2023-07-11 05:27] LABS: Alanine Aminotransferase 32 U/L (7-40); Albumin 4.5 g/dL (3.2-4.8); Alkaline Phosphatase 87 U/L (46-116); Anion Gap 13 (5-15); Aspartate Aminotransferase 99 U/L (13-40); BUN/Creatinine Ratio 9.8 (10.0-20.0); Bilirubin, Total 1.9 mg/dL (0.2-1.0); Blood Urea Nitrogen 9 mg/dL (9-23); Calcium 9.1 mg/dL (8.5-10.1); Carbon Dioxide 21 mmol/L (20-30); Chloride 97 mmol/L (98-107); Glucose 78 mg/dL (74-106); Potassium 4.1 mmol/L (3.5-5.1); Sodium 131 mmol/L (136-145); Total Protein 7.6 g/dL (5.7-8.2)
[2023-07-11 06:42] VITALS: BP 157/93; PULSE 108; RESP 16; TEMP 98; O2SAT 98
[2023-07-11 07:31] LABS: Urine Bacteria FEW /hpf (None Seen); Urine Blood 1+ /uL (Negative); Urine Clarity Clear (Clear); Urine Color Yellow (Yellow); Urine Hyaline Cast MOD /lpf (0 - 2); Urine Mucus FEW (None Seen); Urine Protein, UAD 3+ (Negative); Urine Specific Gravity 1.028 (1.001-1.035); Urine Urobilinogen 2 mg/dL (Negative); Urine WBC 1 /hpf (0 - 3)
[2023-07-11 08:00] VITALS: BP 149/90; PULSE 108; RESP 16; TEMP 99.6; O2SAT 95
[2023-07-11] MEDS: FOLIC ACID 1 MG TAB PO SCH (09:02)
[2023-07-11] MEDS: METOPROLOL TARTRATE 25 MG TAB PO SCH (09:03)
[2023-07-11] MEDS: MULTIPLE VITAMIN TAB PO SCH (09:04)
[2023-07-11] MEDS: THIAMINE HCL 100 MG TAB PO SCH (09:16)
[2023-07-11 12:00] VITALS: BP 185/96; PULSE 104; RESP 18; TEMP 98.2; O2SAT 98
[2023-07-11 15:41] VITALS: BP 185/96; PULSE 104; TEMP 36.8
[2023-07-11 16:00] VITALS: BP 146/99; PULSE 111; RESP 18; TEMP 98.3; O2SAT 96
== END 2023-07-11 17:00 | disposition home or self-care (01) | DRG 249 ==
LOC: ER 20:10 → EDBD 20:10 → TELE 23:20 → TELE-WESTW 07-11 05:45
PROVIDERS: ADMIT Nurse Practitioner Family; ATTEND Nurse Practitioner Family
DX: R11.2 Nausea with vomiting, unspecified (principal); G93.41 Metabolic encephalopathy; E87.29 Other acidosis; E16.1 Other hypoglycemia; F10.139 Alcohol abuse with withdrawal, unspecified; Y90.9 Presence of alcohol in blood, level not specified; F32.A Depression, unspecified; M10.9 Gout, unspecified; I10 Essential (primary) hypertension; F41.9 Anxiety disorder, unspecified; Z79.899 Other long term (current) drug therapy
CPT/HCPCS: 36415; 80048; 80053; 81001; 83690; 85025; 87081; 96361; 96372; 96374; 96375; 99291; G0378

== ENCOUNTER 2023-08-29 17:37 | Emergency (ER) | payer MEDICAID ==
[~2023-08-29] VITALS: Ht 188 cm; Wt 100.0 kg
[2023-08-29 18:22] LABS: Basophils # (auto) 0.1 10 ^3/uL (0-0.2); Basophils % (auto) 2.1 % (0.0-2.0); Eosinophils # (auto) 0 10 ^3/uL (0-0.8); Eosinophils % (auto) 0.1 % (0.0-7.0); Hematocrit 39.7 % (41.0-53.0); Hemoglobin 13.2 g/dL (13.5-17.5); Lymphocytes # (auto) 1.8 10 ^3/uL (0.4-5.4); Lymphocytes % (auto) 43.9 % (10.0-50.0); Mean Corpuscular Hemoglobin 29.1 pg (28.0-32.0); Mean Corpuscular Hgb Conc. 33.2 g/dL (32.0-36.0); Mean Corpuscular Volume 87.6 fL (80.0-100.0); Monocytes # (auto) 0.2 10 ^3/uL (0-1.3); Monocytes % (auto) 4.2 % (0.0-12.0); Neutrophils # (auto) 2.1 10 ^3/uL (1.6-8.6); Neutrophils % (auto) 49.7 % (37.0-80.0); Nucleated Red Blood Cells % 0.1 %; Red Blood Cells 4.53 10^6/uL (4.5-5.90); Red Cell Distribution Width 16.7 % (11.8-14.3); White Blood Cell 4.1 10^3/uL (4.4-10.8)
[2023-08-29 18:39] LABS: Alanine Aminotransferase 40 U/L (7-40); Albumin 4.8 g/dL (3.2-4.8); Alkaline Phosphatase 86 U/L (46-116); Anion Gap 23 (5-15); Aspartate Aminotransferase 77 U/L (13-40); BUN/Creatinine Ratio 7.1 (10.0-20.0); Blood Urea Nitrogen 5 mg/dL (9-23); Calcium 9.3 mg/dL (8.7-10.4); Carbon Dioxide 16 mmol/L (20-30); Chloride 100 mmol/L (98-107); Glucose 65 mg/dL (74-106); Potassium 3.6 mmol/L (3.5-5.1); Sodium 139 mmol/L (136-145)
[2023-08-29 18:40] LABS: Bilirubin, Total 1.6 mg/dL (0.2-1.0); Total Protein 7.9 g/dL (5.7-8.2)
[2023-08-29 18:50] LABS: Blood Alcohol 463.9 mg/dL (<10)
[2023-08-29 18:51] VITALS: RESP 16; O2SAT 95
[2023-08-29 20:15] VITALS: PULSE 110; RESP 16; O2SAT 96
[2023-08-29] MEDS: FOLIC ACID 1 MG, MULTIPLE VITAMIN 10 ML, MAGNESIUM SULF SDV 50% 8 MEQ, THIAMINE INJ 100... INJ STA (20:30)
[2023-08-29] MEDS: SODIUM CHLORIDE 0.9% 1,000 ML IV ONE (20:39)
[2023-08-30 07:41] VITALS: BP 122/85; TEMP 98.1
[2023-08-30 07:42] VITALS: PULSE 123; RESP 16; O2SAT 96
[2023-08-30] MEDS: chlordiazePOXIDE HCL 25 MG CAP PO ONE (07:53)
== END 2023-08-30 09:20 | disposition home or self-care (01) ==
LOC: EDBD 17:37 → EDUNIT# 17:37 → ER 17:45
DX: F10.129 Alcohol abuse with intoxication, unspecified (principal); I10 Essential (primary) hypertension; F41.9 Anxiety disorder, unspecified; F32.9 Major depressive disorder, single episode, unspecified; M10.9 Gout, unspecified; Z79.899 Other long term (current) drug therapy; Y90.0 Blood alcohol level of less than 20 mg/100 ml
CPT/HCPCS: 36415; 80053; 80320; 85025; 96365; 99285; J3411; J3475; J7070

== ENCOUNTER 2023-09-12 10:43 | Inpatient (IN) | payer MEDICAID ==
[~2023-09-12] VITALS: Ht 193 cm; Wt 114.9 kg
[2023-09-12] MEDS: SODIUM CHLORIDE 0.9% 1,000 ML IV ONE ×2 (11:31→18:02)
[2023-09-12 11:53] LABS: Basophils # (auto) 0.2 10 ^3/uL (0-0.2); Basophils % (auto) 2.9 % (0.0-2.0); Eosinophils # (auto) 0 10 ^3/uL (0-0.8); Hematocrit 36.4 % (41.0-53.0); Hemoglobin 11.8 g/dL (13.5-17.5); Lymphocytes # (auto) 1.6 10 ^3/uL (0.4-5.4); Lymphocytes % (auto) 31.6 % (10.0-50.0); Mean Corpuscular Hemoglobin 28.9 pg (28.0-32.0); Mean Corpuscular Hgb Conc. 32.4 g/dL (32.0-36.0); Mean Corpuscular Volume 89.1 fL (80.0-100.0); Monocytes # (auto) 0.4 10 ^3/uL (0-1.3); Monocytes % (auto) 7.5 % (0.0-12.0); Nucleated Red Blood Cells % 0.3 %; Red Blood Cells 4.09 10^6/uL (4.5-5.90); Red Cell Distribution Width 18.1 % (11.8-14.3); White Blood Cell 5.2 10^3/uL (4.4-10.8)
[2023-09-12 12:02] LABS: Calcium 9.1 mg/dL (8.7-10.4)
[2023-09-12 12:03] LABS: Chloride 108 mmol/L (98-107); Potassium 3.7 mmol/L (3.5-5.1); Sodium 145 mmol/L (136-145)
[2023-09-12 12:05] LABS: Anion Gap 22 (5-15); Carbon Dioxide 15 mmol/L (20-30)
[2023-09-12 12:06] LABS: BUN/Creatinine Ratio 9.5 (10.0-20.0); Blood Urea Nitrogen 8 mg/dL (9-23); Glucose 88 mg/dL (74-106)
[2023-09-12 12:20] LABS: Blood Alcohol 500.5 mg/dL (<10)
[2023-09-12] MEDS: HALOPERIDOL LACTATE 5 MG/ML INJ VIAL IV ONE (12:44)
[2023-09-12] MEDS: HALOPERIDOL LACTATE 5 MG/ML INJ VIAL IM ONE (12:45)
[2023-09-12 19:15] VITALS: PULSE 111; RESP 14; O2SAT 97
[2023-09-12] MEDS: FOLIC ACID 1 MG, MAGNESIUM SULF SDV 50% 8 MEQ, MULTIPLE VITAMIN 10 ML, THIAMINE INJ 100... INJ SCH (20:23)
[2023-09-13] MEDS: SODIUM CHLORIDE 0.9% 1,000 ML IV ONE (00:17)
[2023-09-13] MEDS: LORazepam 2MG/ML-1ML VIAL IM ONE (03:45)
[2023-09-13 07:51] VITALS: PULSE 114; RESP 22; O2SAT 97
[2023-09-13] MEDS: chlordiazePOXIDE HCL 25 MG CAP PO ONE (10:57)
[2023-09-13] MEDS: LORazepam 2MG/ML-1ML VIAL IV ONE (10:58)
[2023-09-13] MEDS ORDERED: LORazepam 2MG/ML-1ML VIAL IV PRN (12:30)
[2023-09-13] MEDS: chlordiazePOXIDE HCL 25 MG CAP PO SCH (13:02)
[2023-09-13] MEDS: LORazepam 2MG/ML-1ML VIAL IV SCH (13:03)
[2023-09-13 14:35] LABS: Urine Bacteria None Seen /hpf (None Seen)
[2023-09-13 14:54] LABS: Urine Blood TRACE /uL (Negative); Urine Clarity Clear (Clear); Urine Color Yellow (Yellow); Urine Protein, UAD 2+ (Negative); Urine Urobilinogen Normal (Negative); Urine WBC 1 /hpf (0 - 3); Urine pH 5.5 (5.0-9.0)
[2023-09-13 15:01] LABS: Amphetamine Screen, Urine Neg (NEGATIVE); Barbiturate Scree,Urine Neg (NEGATIVE); Benzodiazephine Screen, Urine Neg (NEGATIVE); Cocaine Screen, Urine Neg (NEGATIVE); Opiate Scree,Urine Neg (NEGATIVE); Phencyclidine Screen, Urine Neg (NEGATIVE)
[2023-09-13 15:02] LABS: Cannabinoid Screen, Urine Neg (NEGATIVE)
[2023-09-13] MEDS: ACETAMINOPHEN 325 MG TAB PO PRN (15:23)
[2023-09-13] MEDS: hydrALAZINE HCL 20 MG/ML VL IV PRN (17:59)
[2023-09-13] MEDS: MULTIPLE VITAMIN TAB PO SCH (18:16)
[2023-09-13] MEDS: MAGNESIUM OXIDE 400 MG TAB PO SCH (18:17)
[2023-09-13] MEDS: THIAMINE HCL 100 MG TAB PO SCH (18:17)
[2023-09-13] MEDS: FOLIC ACID 1 MG TAB PO SCH (18:17)
[2023-09-13] MEDS: busPIRone HCL 10 MG TAB PO SCH (22:20)
[2023-09-13] MEDS: METOPROLOL TARTRATE 50 MG TAB PO SCH (22:21)
[2023-09-13] MEDS: GABAPENTIN 300 MG CAP PO SCH (22:21)
[2023-09-13 23:15] VITALS: BP 149/94; PULSE 105; RESP 16; TEMP 98.5; O2SAT 100
[2023-09-14] VITALS (27 sets, daily range): BP systolic 137–161; BP diastolic 82–102; PULSE 76–138; RESP 10–26; TEMP 36.9; O2SAT 96–100
[2023-09-14] MEDS: GABAPENTIN 300 MG CAP PO SCH (06:53)
[2023-09-14 09:13] LABS: Basophils # (auto) 0 10 ^3/uL (0-0.2); Basophils % (auto) 0.9 % (0.0-2.0); Eosinophils # (auto) 0 10 ^3/uL (0-0.8); Eosinophils % (auto) 1.2 % (0.0-7.0); Hematocrit 35.7 % (41.0-53.0); Hemoglobin 11.9 g/dL (13.5-17.5); Lymphocytes % (auto) 26.6 % (10.0-50.0); Mean Corpuscular Hemoglobin 29.6 pg (28.0-32.0); Mean Corpuscular Hgb Conc. 33.4 g/dL (32.0-36.0); Mean Corpuscular Volume 88.7 fL (80.0-100.0); Monocytes # (auto) 0.3 10 ^3/uL (0-1.3); Monocytes % (auto) 8.9 % (0.0-12.0); Neutrophils # (auto) 2.4 10 ^3/uL (1.6-8.6); Neutrophils % (auto) 62.4 % (37.0-80.0); Nucleated Red Blood Cells % 0.4 %; Red Blood Cells 4.02 10^6/uL (4.5-5.90); Red Cell Distribution Width 17.2 % (11.8-14.3); White Blood Cell 3.9 10^3/uL (4.4-10.8)
[2023-09-14 09:29] LABS: Alanine Aminotransferase 41 U/L (7-40); Albumin 4.4 g/dL (3.2-4.8); Alkaline Phosphatase 79 U/L (46-116); Anion Gap 11 (5-15); Aspartate Aminotransferase 53 U/L (13-40); Calcium 9.5 mg/dL (8.7-10.4); Carbon Dioxide 25 mmol/L (20-30); Chloride 103 mmol/L (98-107); Glucose 101 mg/dL (74-106); Potassium 3.5 mmol/L (3.5-5.1); Sodium 139 mmol/L (136-145)
[2023-09-14 09:30] LABS: Bilirubin, Total 3.4 mg/dL (0.2-1.0); Total Protein 7.2 g/dL (5.7-8.2)
[2023-09-14 09:35] LABS: BUN/Creatinine Ratio 7.6 (10.0-20.0); Blood Urea Nitrogen < 5 mg/dL (9-23)
[2023-09-14] MEDS: chlordiazePOXIDE HCL 25 MG CAP PO SCH (10:36)
[2023-09-14] MEDS: ALLOPURINOL 100 MG TAB PO SCH (10:36)
[2023-09-14] MEDS: amLODIPine BESYLATE 5 MG TAB PO SCH (10:37)
[2023-09-14] MEDS ORDERED: METOPROLOL SUCCINATE XL 50 MG TAB PO SCH (22:00)
[2023-09-15] MEDS ORDERED: chlordiazePOXIDE HCL 25 MG CAP PO SCH (10:00)
[2023-09-16] MEDS ORDERED: chlordiazePOXIDE HCL 25 MG CAP PO SCH (07:00)
== END 2023-09-14 19:48 | disposition short-term general hospital (02) | DRG 816 ==
LOC: EDBD 10:43 → ER 10:43 → OVERFLOW 09-13 12:26 → DOU IN ICU 09-13 23:12
PROVIDERS: ADMIT Registered Nurse; ATTEND Nurse Practitioner Acute Care
DX: T51.91XA Toxic effect of unspecified alcohol, accidental (unintentional), initial encounter (principal); E51.2 Wernicke's encephalopathy; R00.0 Tachycardia, unspecified; E66.9 Obesity, unspecified; F10.139 Alcohol abuse with withdrawal, unspecified; F32.A Depression, unspecified; F41.9 Anxiety disorder, unspecified; I10 Essential (primary) hypertension; Z68.30 Body mass index [BMI] 30.0-30.9, adult; Y90.8 Blood alcohol level of 240 mg/100 ml or more; M10.9 Gout, unspecified
CPT/HCPCS: 36415; 80048; 80053; 80307; 80320; 81001; 83735; 85025; 87081; G0378

== ENCOUNTER 2023-10-02 19:03 | Inpatient (IN) | payer MEDICAID ==
[~2023-10-02] VITALS: Ht 193 cm; Wt 100.5 kg
[2023-10-02 19:51] LABS: Basophils # (auto) 0 10 ^3/uL (0-0.2); Basophils % (auto) 0.5 % (0.0-2.0); Eosinophils # (auto) 0 10 ^3/uL (0-0.8); Hematocrit 34.6 % (41.0-53.0); Hemoglobin 11.5 g/dL (13.5-17.5); Lymphocytes # (auto) 0.7 10 ^3/uL (0.4-5.4); Lymphocytes % (auto) 16.9 % (10.0-50.0); Mean Corpuscular Hemoglobin 30.2 pg (28.0-32.0); Mean Corpuscular Hgb Conc. 33.1 g/dL (32.0-36.0); Monocytes # (auto) 0.3 10 ^3/uL (0-1.3); Monocytes % (auto) 6.8 % (0.0-12.0); Neutrophils % (auto) 75.8 % (37.0-80.0); Nucleated Red Blood Cells % 0.7 %; Platelet Count (auto) 76 10^3/uL (140-450); Red Cell Distribution Width 19.3 % (11.8-14.3)
[2023-10-02 19:58] LABS: Chloride 97 mmol/L (98-107); Potassium 3.4 mmol/L (3.5-5.1)
[2023-10-02 19:59] LABS: Calcium 8.9 mg/dL (8.7-10.4); Carbon Dioxide 15 mmol/L (20-30)
[2023-10-02 20:04] LABS: Blood Urea Nitrogen 9 mg/dL (9-23); Glucose 80 mg/dL (74-106)
[2023-10-02] MEDS: FOLIC ACID 1 MG TAB PO ONE (20:08)
[2023-10-02] MEDS: MULTIPLE VITAMIN TAB PO ONE (20:09)
[2023-10-02] MEDS: chlordiazePOXIDE HCL 25 MG CAP PO ONE (20:09)
[2023-10-02 20:12] LABS: Anisocytosis Slight; Platelet Estimate Decreased
[2023-10-02] MEDS: THIAMINE 100mg/ml INJ (200mg/2ml VIAL) IV ONE (20:12)
[2023-10-02] MEDS: SODIUM CHLORIDE 0.9% 1,000 ML IV ONE (20:12)
[2023-10-02] MEDS: LORazepam 2MG/ML-1ML VIAL IV ONE (20:12)
[2023-10-02] MEDS: FAMOTIDINE (10MG/ML) 2ML VL IV ONE (20:13)
[2023-10-02 20:17] LABS: Anion Gap 26 (5-15); Sodium 138 mmol/L (136-145)
[2023-10-02] MEDS ORDERED: ACETAMINOPHEN 325 MG TAB PO PRN (22:45)
[2023-10-02] MEDS ORDERED: hydrALAZINE HCL 20 MG/ML VL IV PRN (22:45)
[2023-10-02] MEDS ORDERED: ONDANSETRON HCL 4 MG/2 ML VIAL IV PRN (22:45)
[2023-10-02] MEDS ORDERED: DOCUSATE SOD 100 MG CAP PO PRN (22:45)
[2023-10-02] MEDS: SODIUM CHLORIDE 0.9% 1,000 ML IV SCH (23:09)
[2023-10-02] MEDS: POTASSIUM CHL 20 Meq TABLET PO ONE (23:10)
[2023-10-02] MEDS ORDERED: MORPHINE SULFATE INJ 2 MG/ml SYRG IV PRN (23:45)
[2023-10-02] MEDS ORDERED: NITROGLYCERIN 0.4 MG SL TAB SL PRN (23:45)
[2023-10-03] VITALS (8 sets, daily range): BP systolic 139–154; BP diastolic 74–102; PULSE 80–124; RESP 18–21; TEMP 97.9–99.2; O2SAT 94–97
[2023-10-03] MEDS: SODIUM CHLORIDE 0.9% 1,000 ML IV SCH (01:07)
[2023-10-03] MEDS: chlordiazePOXIDE HCL 25 MG CAP PO SCH (01:17)
[2023-10-03] MEDS: LORazepam 2MG/ML-1ML VIAL IV PRN (01:28)
[2023-10-03] MEDS: HYDROcodone-ACET 5/325MG TAB PO PRN (04:13)
[2023-10-03 08:29] LABS: Basophils # (auto) 0 10 ^3/uL (0-0.2); Eosinophils # (auto) 0 10 ^3/uL (0-0.8); Eosinophils % (auto) 0.1 % (0.0-7.0); Lymphocytes # (auto) 0.9 10 ^3/uL (0.4-5.4); Mean Corpuscular Hemoglobin 30.6 pg (28.0-32.0); Monocytes # (auto) 0.3 10 ^3/uL (0-1.3)
[2023-10-03 08:33] LABS: Basophils % (auto) 0.6 % (0.0-2.0); Hematocrit 32.8 % (41.0-53.0); Hemoglobin 10.7 g/dL (13.5-17.5); Mean Corpuscular Hgb Conc. 32.7 g/dL (32.0-36.0); Mean Corpuscular Volume 93.6 fL (80.0-100.0); Monocytes % (auto) 12.9 % (0.0-12.0); Neutrophils % (auto) 45.4 % (37.0-80.0); Nucleated Red Blood Cells % 2.3 %; Platelet Count (auto) 57 10^3/uL (140-450); Red Blood Cells 3.51 10^6/uL (4.5-5.90); Red Cell Distribution Width 20.8 % (11.8-14.3); White Blood Cell 2.2 10^3/uL (4.4-10.8)
[2023-10-03] MEDS: THIAMINE 100mg/ml INJ (200mg/2ml VIAL) IV SCH (08:40)
[2023-10-03] MEDS: MULTIPLE VITAMIN TAB PO SCH (08:40)
[2023-10-03] MEDS: FAMOTIDINE (10MG/ML) 2ML VL IV SCH (08:40)
[2023-10-03] MEDS: METOPROLOL TARTRATE 50 MG TAB PO SCH (08:41)
[2023-10-03 08:53] LABS: Alanine Aminotransferase 22 U/L (7-40); Albumin 4.2 g/dL (3.2-4.8); Alkaline Phosphatase 120 U/L (46-116); Anion Gap 10 (5-15); Aspartate Aminotransferase 84 U/L (13-40); BUN/Creatinine Ratio 8.9 (10.0-20.0); Bilirubin, Total 1.9 mg/dL (0.2-1.0); Blood Urea Nitrogen 7 mg/dL (9-23); Calcium 8.6 mg/dL (8.7-10.4); Carbon Dioxide 26 mmol/L (20-30); Chloride 99 mmol/L (98-107); Glucose 83 mg/dL (74-106); Potassium 3.7 mmol/L (3.5-5.1); Sodium 135 mmol/L (136-145); Total Protein 7.4 g/dL (5.7-8.2)
[2023-10-03] MEDS: FOLIC ACID 1 MG in D5W 5% 50 ML INJ SCH (09:08)
[2023-10-03 09:45] LABS: Urine Bacteria FEW /hpf (None Seen); Urine Blood 1+ /uL (Negative); Urine Clarity Clear (Clear); Urine Color Yellow (Yellow); Urine Hyaline Cast FEW /lpf (0 - 2); Urine Mucus FEW (None Seen); Urine Protein, UAD 3+ (Negative); Urine Urobilinogen Normal (Negative); Urine WBC <1 /hpf (0 - 3)
[2023-10-04] VITALS (9 sets, daily range): BP systolic 118–150; BP diastolic 78–90; PULSE 54–111; RESP 18–20; TEMP 98.4–99.1; O2SAT 94–99
[2023-10-04] MEDS: GABAPENTIN 300 MG CAP PO SCH (14:54)
[2023-10-04] MEDS: busPIRone HCL 10 MG TAB PO SCH (21:52)
[2023-10-04] MEDS ORDERED: METOPROLOL TARTRATE 50 MG TAB PO SCH (22:00)
[2023-10-05 01:00] VITALS: BP 124/80; PULSE 97; RESP 20; TEMP 98.5; O2SAT 99
[2023-10-05 05:00] VITALS: BP 136/87; PULSE 102; RESP 20; TEMP 98.4; O2SAT 94
[2023-10-05 08:00] VITALS: PULSE 100; PULSE 94; RESP 20
[2023-10-05 09:00] VITALS: BP 149/101; PULSE 94; RESP 20; TEMP 98.9; O2SAT 98
[2023-10-05] MEDS: amLODIPine BESYLATE 5 MG TAB PO SCH (10:28)
[2023-10-05] MEDS: ALLOPURINOL 100 MG TAB PO SCH (10:28)
[2023-10-05] MEDS ORDERED: FOLI-119 PO (11:42)
[2023-10-05] MEDS ORDERED: THIA100T13 PO (11:42)
[2023-10-05] MEDS ORDERED: CHL25C PO (11:42)
[2023-10-05 12:04] VITALS: BP 149/101; PULSE 94; RESP 20; TEMP 98.9; O2SAT 98
[2023-10-05 13:00] VITALS: BP 145/91; PULSE 87; RESP 20; TEMP 98.1; O2SAT 96
== END 2023-10-05 13:20 | disposition home or self-care (01) | DRG 775 ==
LOC: EDBD 19:03 → ER 19:03 → TELE 23:38 → TELE-WESTW 10-03 03:40
PROVIDERS: ADMIT Nurse Practitioner Family; ATTEND Family Medicine
DX: F10.131 Alcohol abuse with withdrawal delirium (principal); D69.6 Thrombocytopenia, unspecified; F10.129 Alcohol abuse with intoxication, unspecified; E87.6 Hypokalemia; F41.9 Anxiety disorder, unspecified; I10 Essential (primary) hypertension; R00.0 Tachycardia, unspecified; F32.A Depression, unspecified; Y90.3 Blood alcohol level of 60-79 mg/100 ml
CPT/HCPCS: 36415; 80048; 80053; 80320; 81001; 85025; G0378; J3490; J7060